=== PATIENT | female | born 1990 | race Caucasian/White ===

== ENCOUNTER 2019-07-05 16:43 | Inpatient (IN) | payer OTHER ==
[~2019-07-05] VITALS: Ht 165.1 cm; Wt 107.0 kg
--- OUTSIDE RECORDS SUMMARY | ~2019-07-05 | XMS | Clinical Summary ---
Demographics + + + | Address | [address] | | | [place] [address] | + + + | Home Phone | | + + + | Preferred Language | Unknown | + + + | Marital Status | Single | + + + | Cheondoism Affiliation | Unknown | + + + | Race | Unknown | + + + | Ethnic Group | Unknown | + + + Author + + + | Author | [facility] (Historical as of | | | 03-05-19) | + + + | Organization | [facility] (Historical as of | | | 03-05-19) | + + + | Address | Unknown | + + + | Phone | Unavailable | + + + Support + + +---------+ + | Name | Relationship | Address | Phone | + + +---------+ + | Anita Chaudhry | ECON | Unknown | | + + +---------+ + | Lluvia Chaudhry | ECON | Unknown | | + + +---------+ + | Edwina,Megha | ECON | Unknown | | + + +---------+ + Care Team Providers + +------+ + | Care Casing Builder Name | Role | Phone | + +------+ + | Perry Ramirez MD | PP | | + +------+ + Allergies + + + + + + | Active Allergy | Reactions | Severity | Noted | Comments | | | | | Date | | + + + + + + | Meperidine | Hallucinations | Medium | 02/08/20 | | | | | | 15 | | + + + + + + | Hydromorphone | Hallucinations | Medium | 02/08/20 | | | | | | 15 | | + + + + + + | Sulfamethoxazole-Tri | Hallucinations | Medium | 02/08/20 | | | methoprim | | | 15 | | + + + + + + Current Medications + + +-------+---------+------+------+-------+ | Prescription | Sig. | Disp. | Refills | Star | End | Statu | | | | | | t | Date | s | | | | | | Date | | | + + +-------+---------+------+------+-------+ | | Take 1 tablet by | | | | | Activ | | desogestrel-ethinyl | mouth daily. | | | | | e | | estradiol (APRI) | | | | | | | | 0.15-30 MG-MCG per | | | | | | | | tablet | | | | | | | + + +-------+---------+------+------+-------+ | naproxen sodium | Take 220 mg by mouth | | | | | Activ | | (ANAPROX) 220 MG | 2 (two) times daily | | | | | e | | tablet | with meals. | | | | | | + + +-------+---------+------+------+-------+ | Multiple | Take by mouth. | | | | | Activ | | Vitamins-Minerals | | | | | | e | | (MULTIVITAMIN | | | | | | | | GUMMIES ADULT PO) | | | | | | | + + +-------+---------+------+------+-------+ Active Problems + + + | Problem | Noted Date | + + + | Atypical chest pain | 06/02/2016 | + + + | Diarrhea | 06/02/2016 | + + + | Blood in stool | 12/03/2015 | + + + | Change in bowel habits | 12/03/2015 | + + + Family History + + +------+ + | Medical History | Relation | Name | Comments | + + +------+ + | Hypertension | Father | | | + + +------+ + | Hypotension | Mother | | | + + +------+ + + +------+ + + | Relation | Name | Status | Comments | + +------+ + + | Father | | Alive | | + +------+ + + | Maternal Grandfather | | | | + +------+ + + | Maternal Grandmother | | Alive | | + +------+ + + | Mother | | Alive | | + +------+ + + | Paternal Grandfather | | Alive | | + +------+ + + | Paternal Grandmother | | Alive | | + +------+ + + Social History + +-------+ +--------+------+ | Tobacco Use | Types | Packs/Day | Years | Date | | | | | Used | | + +-------+ +--------+------+ | Never Smoker | | | | | + +-------+ +--------+------+ + +---+---+---+ | Smokeless Tobacco: | | | | | Never Used | | | | + +---+---+---+ + + +---------+ + | Alcohol Use | Drinks/We | oz/Week | Comments | | | ek | | | + + +---------+ + | No | | | | + + +---------+ + + + + | Sex Assigned at | Date Recorded | | | | + + + | Not on file | | + + + Last Filed Vital Signs + + + + | Vital Sign | Reading | Time Taken | + + + + | Blood Pressure | 113/66 | 06/02/2016 10:22 AM PST | + + + + | Pulse | 79 | 06/02/2016 10:22 AM PST | + + + + | Temperature | 36.7 C (98.1 F) | 06/02/2016 10:22 AM PST | + + + + | Respiratory Rate | 16 | 06/02/2016 10:22 AM PST | + + + + | Oxygen Saturation | 99% | 06/02/2016 10:22 AM PST | + + + + | Inhaled Oxygen | - | - | | Concentration | | | + + + + | Weight | 79 kg (174 lb 2.6 | 06/02/2016 9:51 AM PST | | | oz) | | + + + + | Height | 165.1 cm (5' 5") | 06/02/2016 9:51 AM PST | + + + + | Body Mass Index | 28.98 | 06/02/2016 9:51 AM PST | + + + + Plan of Treatment + + + + + | Health Maintenance | Due Date | Last Done | Comments | + + + + + | Vaccine: HPV (1 - | | | | | Female 3-dose | 8 | | | | series) | | | | + + + + + | Cervical Cancer | | | | | Screening (Pap) | 4 | | | + + + + + | Vaccine: Influenza | | | | | (#1) | 9 | | | + + + + + | Vaccine: | | 09/24/2012 | | | Dtap/Tdap/Td (2 - | 3 | | | | Td) | | | | + + + + + Results Not on filefrom Last 3 Months Insurance + +--------+ +------+-------+ + | Payer | Benefi | Subscriber | Type | Phone | Address | | | t Plan | ID | | | | | | / | | | | | | | Group | | | | | + +--------+ +------+-------+ + | [employer] | ODS | [id number] | | | | | | HEALTH | | | | | | | PLAN | | | | | + +--------+ +------+-------+ + | MEDICAID | [place] | [id number] | | | [address] | | | N | | | | [place] | | | [place] | | | | [phone] | | | CAPACITY MANAGER | | | | | + +--------+ +------+-------+ + + +--------+ +--------+ + + | Guarantor Name | Accoun | Relation to | Date | Phone | Billing Address | | | t Type | Patient | of | | | | | | | | | | + +--------+ +--------+ + + | CHRISSY GERARDO | Person | Self [birth year] Home: | [address] | | | [place] | | 1990 | [phone] | [place] | | | [place] | | [phone] | + +--------+ +--------+ + +
--- OUTSIDE RECORDS SUMMARY | ~2019-07-05 | XMS | Encounter Summary ---
Demographics + + + | Address | [address] | | | [place] [address] | + + + | Home Phone | | + + + | Preferred Language | Unknown | + + + | Marital Status | Single | + + + | Anabaptist Affiliation | NON | + + + | Race | White | + + + | Ethnic Group | Not or | + + + Author + + + | Author | [facility] | + + + | Organization | [facility] | + + + | Address | Unknown | + + + | Phone | Unavailable | + + + Support + + + + + | Name | Relationship | Address | Phone | + + + + + | Anita Gerardo | ECON | [address] | | | | | [place] | | | | | [address] | | + + + + + | Anita Paredes | ECON | [address] | | | | | [place] | | | | | [address] | | + + + + + Care Team Providers + +------+ + | Care Assistant Child Care Teacher Name | Role | Phone | + +------+ + | Perry Ramirez MD | PCP | | + +------+ + Encounter Details +--------+ + + + + | Date | Type | Department | Care Team | Description | +--------+ + + + + | 07/01/ | Telephone | Pediatric | Humberto Hannah MD | | | 2006 | | Gastroenterology at | | | | | | [place] | | | | | | [facility] | | | | | | [address] [facility] | | | | | | Mailcode: CDRCP | | | | | | [place] | | | | | | [place], [place] | | | | | | [address] | | | | | | [phone] | | | +--------+ + + + [...]
--- OUTSIDE RECORDS SUMMARY | ~2019-07-05 | XMS | Encounter Summary ---
Demographics + + + | Address | [address] | | | [place] [address] | + + + | Home Phone | | + + + | Preferred Language | Unknown | + + + | Marital Status | Single | + + + | Temple Affiliation | NON | + + + | Race | White | + + + | Ethnic Group | Not or | + + + Author + + + | Author | [facility] | + + + | Organization | [facility] | + + + | Address | Unknown | + + + | Phone | Unavailable | + + + Support + + + + + | Name | Relationship | Address | Phone | + + + + + | Anita Gerardo | ECON | [address] | | | | | [place] | | | | | [address] | | + + + + + | Anita Paredes | ECON | [address] | | | | | [place] | | | | | [address] | | + + + + + Care Team Providers + +------+ + | Care Head Esthetician Name | Role | Phone | + +------+ + | Perry Ramirez MD | PCP | | + +------+ + Encounter Details +--------+ + + + + | Date | Type | Department | Care Team | Description | +--------+ + + + + | 07/23/ | Telephone | Pediatric | Humberto Hannah MD | | | 2007 | | Gastroenterology at | | | | | | [facility] | | | | | | [facility] | | | | | | [address] [facility] | | | | | | Mailcode: CDR | | | | | | [place] | | | | | | [place], [place] | | | | | | [address] | | | | | | [phone] | | | +--------+ + + + [...]
--- OUTSIDE RECORDS SUMMARY | ~2019-07-05 | XMS | Clinical Summary ---
Demographics + + + | Address | [address] | | | [place] [address] | + + + | Home Phone | | + + + | Preferred Language | Unknown | + + + | Marital Status | Single | + + + | Yazdanism Affiliation | NON | + + + | Race | White | + + + | Ethnic Group | Not or | + + + Author + + + | Author | [facility] | + + + | Organization | [facility] | + + + | Address | Unknown | + + + | Phone | Unavailable | + + + Support + + + + + | Name | Relationship | Address | Phone | + + + + + | Anita Gerardo | ECON | [address] | | | | | [place], [place] | | | | | [address] | | + + + + + | Anita Paredes | ECON | [address] | | | | | [place], [place] | | | | | [address] | | + + + + + Care Team Providers + +------+ + | Care Electrician Master Name | Role | Phone | + +------+ + PCP | Unavailable | + +------+ + Source Comments JOHN is fully live on both [facility] and [facility] In[facility] Allergies No Known Allergies Medications + + + +---------+------+------+-------+ | Medication | Sig | Dispensed | Refills | Star | End | Statu | | | | | | t | Date | s | | | | | | Date | | | + + + +---------+------+------+-------+ | DAILY VITAMIN ORAL | take one tablet once | | 0 | | | Activ | | | daily | | | | | e | + + + +---------+------+------+-------+ Active Problems + + + | Problem | Noted Date | + + + | Abdominal pain, generalized | 07/06/2007 | + + + Social History + +-------+ [...] recent travel history available. | + + Last Filed Vital Signs + [...] | | + + + + + Plan of Treatment + + + + + | Health Maintenance | Due Date | Last Done | Comments | + + + + + | Influenza (Flu) | | | | | vaccination (#1) | 9 | | | + + + + + | Pneumococcal | Aged Out | | No longer eligible | | vaccination | | | based on patient's | | | | | age to complete this | | | | | topic | + + + + + Results Not on filefrom Last 3 Months Insurance + +--------+ +--------+-------+---------+------+ | Payer | Benefi | Subscriber | Effect | Phone | Address | Type | | | t Plan | ID | vannessa | | | | | | / | | Dates | | | | | | Group | | | | | | + +--------+ +--------+-------+---------+------+ | COVENTRY FIRST | COVENT | [phone] | Effect | | | HMO | | HEALTH | RY | | vannessa | | | | | | FIRST | | for | | | | | | HEALTH | | all | | | | | | | | dates | | | | + +--------+ +--------+-------+---------+------+ + +--------+ +-------+ + + | Guarantor Name | Accoun | Relation to | Date | Phone | Billing Address | | | t Type | Patient | of | | | | | | | | | | + +--------+ +-------+ + + | PHILOMENA ACEVEDO | Person | Parent | | | [address] | | | al/Fam | | | [phone] | [place] | | | [place] | | | [address] (Home) | [phone] | + +--------+ +-------+ + +
--- OUTSIDE RECORDS SUMMARY | ~2019-07-05 | XMS | Encounter Summary ---
Demographics + + + | Address | [address] | | | [place] [address] | + + + | Home Phone | | + + + | Preferred Language | Unknown | + + + | Marital Status | Single | + + + | Catholic Affiliation | NON | + + + | Race | White | + + + | Ethnic Group | Not or | + + + Author + + + | Author | [facility] | + + + | Organization | [facility] | + + + | Address | Unknown | + + + | Phone | Unavailable | + + + Support + + + + + | Name | Relationship | Address | Phone | + + + + + | Anita Gerardo | ECON | [address] | | | | | [place] | | | | | [address] | | + + + + + | Anita Paredes | ECON | [address] | | | | | [place] | | | | | [address] | | + + + + + Care Team Providers + +------+ + | Care Hand Expansion Envelope Maker Name | Role | Phone | + [...] Dx); [facility] | | | | [facility] | | | | | | [address] | | | | | | Mailcode: CDRCP | | | | | | [place] | | | | | | [place], [place] | | | | | | [address] | | | | | | [phone] | | | +--------+---------+ + + + [...] HIDA scan. She is then referred to [facility] GI office for further evaluation. No past [...]
--- OUTSIDE RECORDS SUMMARY | ~2019-07-05 | XMS | Encounter Summary ---
Demographics + + + | Address | [address] | | | [place] [address] | + + + | Home Phone | | + + + | Preferred Language | Unknown | + + + | Marital Status | Single | + + + | Sabianist Affiliation | NON | + + + [...] + | Anita Gerardo | ECON | [address] | | | | | [place] | | | | | [address] | | + + + + + | Anita Paredes | ECON | [address] | | | | | [place] | | | | | [address] | | + + + + + Care Team Providers + +------+ + | Care Cold Header Operator Name | Role | Phone | + +------+ + | Opal Ramirez MD | PCP | | + +------+ + Encounter Details +--------+ + + + + | Date | Type | Department | Care Team | Description | +--------+ + + + + | 07/16/ | Procedure - | [facility] Division of | Endoscopy, Gi | EGD | | 2006 | | Gastroenterology/Hep | | (esophagogastroduode | | | Transcribed | atology [address] | | noscopy) | | | | [address] | | | | | | Mailcode: PV310 | | | | | | [facility] | | | | | | [address] | | | | | | [place], [place] | | | | | | [address] | | | | | | [phone] | | | +--------+ + + + [...] | + +--------+ + + + | EGD | | 07/16/2007 | | Results for this | | | | 12:00 AM | | procedure are in the | | | | PST | | results section. | + +--------+ + + + documented in this encounter Results EGD (07/16/2007 12:00 AM PST) + + | Procedure Note | + + | 07/16/2007 12:00 AM PST | | PROCEDURES:PANENDOSCOPY (EGD) CPT: 20276. | | WITH BIOPSY(S)/BRUSHING(S). CPT: 01218. | | PERSONNEL:THE ATTENDING PHYSICIAN WAS PRESENT DURING THE ENTIRE PROCEDURE. | | ENDOSCOPIST: ASSISTANT SUZY GRANT. | | REFERRED BY:OPAL RAMIREZ M.D. | | EVALUATION PERSONNELPRE-OPERATIVE PHYSICAL BY AURY MACHUCA, CODE OFFICIAL | | PROFESSOR ON JUL 16, 2007 | | EXAM LOCATION:EXAM PERFORMED IN ENDOSCOPY SUITE. OUTPATIENT | | PATIENT CONSENT:PROCEDURE, ALTERNATIVES, RISKS AND BENEFITS DISCUSSED, | | CONSENT OBTAINED, FROM PATIENT. CONSENT WAS OBTAINED BY THE PHYSICIAN. | | CONSENT TO BE CONTACTED WAS NOT REQUESTED. | | SYMPTOMS:ABDOMINAL PAIN, | | CURRENT MEDICATIONS:PATIENT IS NOT CURRENTLY TAKING COUMADIN. | | MEDICAL/SURGICAL HISTORY:THIS PATIENT HAS NO CO-MORBIDITIES. | | ALLERGIES:NO KNOWN ALLERGIES. | | PATIENT HABITSPATIENT DOES NOT SMOKE. | | PRE-EXAM PHYSICAL:PERFORMED JUL 16, 2007 CARDIO-PULMONARY EXAM, HEENT | | EXAM, ABDOMINAL EXAM, EXTREMITY EXAM, NEUROLOGICAL EXAM, MENTAL STATUS | | EXAM WNL. | | EXAM INFO:MAXIMUM DEPTH OF INSERTION DUODENUM, INTENDED DUODENUM. PATIENT | | POSITION: ON LEFT SIDE. VOCAL CORDS VISUALIZED. GASTRIC RETROFLEXION | | PERFORMED. IMAGES TAKEN. ASA CLASSIFICATION: I. TOLERANCE: EXCELLENT. | | SEDATION MEDS:PATIENT ASSESSED AND FOUND TO BE APPROPRIATE FOR GENERAL | | ANESTHESIA. SEDATION WAS MANAGED BY THE ANESTHESIOLOGIST. | | MONITORING:BP AND PULSE MONITORING DONE. OXIMETRY USED. | | INSTRUMENT(S):OLYMPUS GIF-160. | | - NORMAL: PROXIMAL ESOPHAGUS TO DISTAL ESOPHAGUS. NOT SEEN: ESOPHAGEAL | | INFLAMMATION. BIOPSY/NORMAL TAKEN. | | - NORMAL: CARDIA TO ANTRUM. NOT SEEN: ULCER. MUCOSAL ABNORMALITY. | | BIOPSY/NORMAL TAKEN. | | - NORMAL: DUODENAL BULB TO JEJUNUM. NOT SEEN: ULCER. MUCOSAL ABNORMALITY. | | BIOPSY/NORMAL TAKEN. | | COMMENTS:GROSSLY NORMAL STUDY | | UNPLANNED INTERVENTION:NO UNPLANNED INTERVENTIONS WERE REQUIRED. | | UNPLANNED EVENTS:THERE WERE NO COMPLICATIONS. | | INSTRUCTIONS:POST SEDATION INSTRUCTIONS GIVEN. | | MEDICATION(S):AWAIT PATHOLOGY. | | DISPOSITION:AFTER PROCEDURE PATIENT SENT TO SHORT STAY UNIT. AFTER | | RECOVERY PATIENT SENT HOME. | | SCHEDULING:AWAIT PATHOLOGY TO SCHEDULE PATIENT. CALL OFFICE FOR | | APPOINTMENT, TO ASSISTANT SUZY GRANT, | | CALL OFFICE FOR BIOPSY RESULTS, TO ASSISTANT SUZY GRANT, | | PATHOLOGY:BIOPSY/NORMAL: DISTAL ESOPHAGUS. | | BIOPSY/NORMAL: ANTRUM. | | BIOPSY/NORMAL: JEJUNUM. | | REPORT ENTERED BY: | | | + + documented in this encounter Visit Diagnoses Not on filedocumented in this encounter"
--- OUTSIDE RECORDS SUMMARY | ~2019-07-05 | XMS | Encounter Summary ---
Demographics + + + | Address | [address] | | | [place] [address] | + + + | Home Phone | | + + + | Preferred Language | Unknown | + + + | Marital Status | Single | + + + | Roman Catholic Affiliation | NON | + + + | Race | White | + + + | Ethnic Group | Not or | + + + Author + + + | Author | [facility] | + + + | Organization | [facility] | + + + | Address | Unknown | + + + | Phone | Unavailable | + + + Support + + + + + | Name | Relationship | Address | Phone | + + + + + | Anita Gerardo | ECON | [address] | | | | | [place] | | | | | [address] | | + + + + + | Anita Paredes | ECON | [address] | | | | | [place] | | | | | [address] | | + + + + + Care Team Providers + +------+ + | Care Edge Drummer Name | Role | Phone | + [...] [id number] | | | | | | [place], [place] | | | | | | [address] | | | | | | [phone] | | | +--------+ + + + [...] | + + + + + | [facility] | [address] | [place] [address] | | | PATHOLOGY | UR DIAZ | | | + + + + + | [facility] | [address] [facility] | [place] [address] | | | PATHOLOGY | RU DIAZ | | | + + + + + documented in this encounter Visit Diagnoses Not on filedocumented in this encounter"
--- OUTSIDE RECORDS SUMMARY | ~2019-07-05 | XMS | Encounter Summary ---
Demographics + + + | Address | [address] | | | [place] [address] | + + + | Home Phone | | + + + | Preferred Language | Unknown | + + + | Marital Status | Single | + + + | Restoration Affiliation | NON | + + + | Race | White | + + + | Ethnic Group | Not or | + + + Author + + + | Author | [facility] | + + + | Organization | [facility] | + + + | Address | Unknown | + + + | Phone | Unavailable | + + + Support + + + + + | Name | Relationship | Address | Phone | + + + + + | Anita Gerardo | ECON | [address] | | | | | [place] | | | | | [address] | | + + + + + | Anita Paredes | ECON | [address] | | | | | [place] | | | | | [address] | | + + + + + Care Team Providers + +------+ + | Care Surgical Scrub Tech Name | Role | Phone | + [...] [id number] | | | | | | [place], [place] | | | | | | [address] | | | | | | [phone] | | | +--------+ + + + [...]
--- OUTSIDE RECORDS SUMMARY | ~2019-07-05 | XMS | Encounter Summary ---
Demographics + + + | Address | [address] | | | [place] [address] | + + + | Home Phone | | + + + | Preferred Language | Unknown | + + + | Marital Status | Single | + + + | Buddhism Affiliation | NON | + + + | Race | White | + + + | Ethnic Group | Not or | + + + Author + + + | Author | [facility] | + + + | Organization | [facility] | + + + | Address | Unknown | + + + | Phone | Unavailable | + + + Support + + + + + | Name | Relationship | Address | Phone | + + + + + | Anita Gerardo | ECON | [address] | | | | | [place] | | | | | [address] | | + + + + + | Anita Paredes | ECON | [address] | | | | | [place] | | | | | [address] | | + + + + + Care Team Providers + +------+ + | Care Pump Tender Name | Role | Phone | + [...] | | | generalized | [place] | [place], | | | | | Procedures | [facility] [place] | [place] [address] | | | | | CONSULT TO | [place], [place] | | | | | | [place] | [address] | | | | | | GI | | | | | | | ENDOSCOPY,BI | | | | | | | OPSY | | | +--------+--------+ + + + + Encounter Details +--------+ + + + + | Date | Type | Department | Care Team | Description | +--------+ + + + + | 07/06/ | Lpn Care Manager | Pediatric | Irma Mejia, | Abdominal Pain, | | 2006 | | Gastroenterology at | RN [address] | Generalized (Primary | | | | [facility] | [address] | Dx) | | | [facility] | [place] [address] | | | | | [address] | | | | | | Mailcode: CDRCP | | | | | | [place] | | | | | | [place], [place] | | | | | | [address] | | | | | | [phone] | | | +--------+ + + + [...]
[~2019-07-05 16:43] MED LIST: EMOQUETTE1 EACH PO; FLAGYL500 MG PO; PERCOCET 5-3251 EACH PO; ZOFRAN ODT8 MG PO
--- NOTE | 2019-07-06 12:22 | PR ---
[facility] [address] [facility] [place] [address] Signed Progress Notes IP Datetime Report Generated by CPN: 07/06/2019 12:22 PROGRESS NOTES: [id number] Impression: Slow Progression of Labor Plan: Continue present management Other Plans: Continue Cytotec VITAL SIGNS: [id number] Vital Signs: Reviewed; Within Normal Limits EXAM: [id number] Dilatation: closed Effacement: thick Station: -3 Uterine Contractions: every 2-3 minutes MEMBRANES: [id number] Membrane Status: Intact Comments: Contracitons still mild, but more frequent; continue with Cytotec Induction Fetus A: [id number] FHR Baseline: 145 Variability: Moderate 6-25bpm Accelerations: 15X15 Decelerations: Late; Variable Fetus B: [id number] Signing Physician: Brian Mehta MD Copies: ~ *Electronically Signed* 07/06/19 1222 BRIAN MEHTA MD PATIENT NAME: QUETA VELAZQUEZ PROGRESS NOTE DATE OF : 89 PHYSICIAN: BRIAN MEHTA MD RPT #: [id number] REPORT IS CONFIDENTIAL AND NOT TO BE RELEASED WITHOUT AUTHORIZATION
--- NOTE | 2019-07-06 13:40 | NUR ---
CONNECTED WITH PTS' MOTHER-SHE IS VERY EXCITED ABOUT BEING A G.MOTHER! GAVE ENCOURAGEMENT, HAD PRAYER WTIH G.MOTHER. WILL FOLLOW NEEDED
--- NOTE | 2019-07-06 18:15 | PR ---
[facility] [address] [place], [place] [address] Signed Progress Notes IP Datetime Report Generated by CPN: 07/06/2019 18:15 PROGRESS NOTES: [id number] Impression: Slow Progression of Labor Plan: Deliver- Section Other Plans: Continue Cytotec Informed Consent Obtain: Section Delivery; Risks, Benefits and Alternatives Discussed VITAL SIGNS: [id number] Vital Signs: Reviewed; Within Normal Limits EXAM: [id number] Dilatation: 0.0 Effacement: 0 Station: -3 Uterine Contractions: every 2-3 minutes MEMBRANES: [id number] Membrane Status: Intact Comments: Still difficult vaginal exam and LGA fetus, with no progress after Cytotec x4 and having contractions. Discussed increased risks of prolonged labor, difficult delivery. Recommend C/S for Failed Induction. Discussed risks/benefits, timing, optionof continuing with Cytotec and/or Pitocin. Patient agrees to C/S. Consent signed. OR and ANesthesia called. Fetus A: [id number] FHR Baseline: 140 Variability: Moderate 6-25bpm Accelerations: 15X15 Decelerations: Late; Variable Presentation: Vertex Fetus B: [id number] Signing Physician: Brian Mehta MD Copies: ~ *Electronically Signed* 07/06/19 8052 BRIAN MEHTA MD PATIENT NAME: QUETA VELAZQUEZ PROGRESS NOTE DATE OF : 92 PHYSICIAN: BRIAN MEHTA MD RPT #: [id number] REPORT IS CONFIDENTIAL AND NOT TO BE RELEASED WITHOUT AUTHORIZATION
--- NOTE | 2019-07-07 11:42 | PR ---
[facility] [address] [facility] [place] [address] Signed PP Progress Notes Datetime Report Generated by CPN: 07/07/2019 11:42 SUBJECTIVE: [id number] Pain: Within normal limits Nausea/Vomiting: Denies Vital Signs: [id number] Vital Signs: Reviewed; Within Normal Limits Notable Details: PP Hgb/Hct = 9.3/28.5 EXAM: [id number] Abdomen/Uterus: Normal Lochia: Normal Extremities: Normal Incision: Normal IMPRESSION/PLAN/PROCEDURES: [id number] Impression: Normal progression Plan: Continue present management Procedures: None Progress Notes: Doing well, eating well, plan removing Andrea and increasing activity later today Signing Physician: Brian Mehta MD Copies: ~ *Electronically Signed* 07/07/19 1142 BRIAN MEHTA MD PATIENT NAME: QUETA VELAZQUEZ PROGRESS NOTE DATE OF : 92 PHYSICIAN: BRIAN MEHTA MD RPT #: [id number] REPORT IS CONFIDENTIAL AND NOT TO BE RELEASED WITHOUT AUTHORIZATION
--- NOTE | 2019-07-08 11:33 | OR ---
[facility] [address] [place], [place] [address] Signed DATE OF OPERATION: 07/06/2019 SURGEON: Francisco Franks MD Patient of Dr. Franks. PREOPERATIVE DIAGNOSES: Failure to progress, cephalopelvic disproportion. POSTOPERATIVE DIAGNOSES: Failure to progress, cephalopelvic disproportion. PROCEDURE PERFORMED: Primary low transverse segment section, delivery of live male . HOUSEKEEPING DIRECTOR: Lewis Tripp DO ANESTHESIA: Spinal. ESTIMATED BLOOD LOSS: 700 mL. COMPLICATIONS: Terminal bradycardia. DRAINS: Andrea to bladder. FINDINGS: Live male infant, Apgars 8 and 9. Weight 9 pounds 9 ounces. Normal uterus. Normal tubes and ovaries bilateral. DESCRIPTION OF PROCEDURE: The patient was brought to the operating room, placed in supine position. After adequate spinal anesthesia was obtained, she was prepped and draped in usual sterile fashion. Andrea catheter was placed in the bladder. After the spinal heart rate was noted to drop into the 70s, so the prep was expeditiously done and the patient rapidly prepped and draped. A Pfannenstiel skin incision was made with a scalpel. The Electronically Signed By: FRANCISCO FRANKS MD 07/08/19 1133 PATIENT NAME: QUETA VELAZQUEZ OPERATIVE REPORT DATE OF : 89 REPORT #: [id number] PHYSICIAN: FRANCISCO FRANKS MD PCP: OPAL MURDOCK MD REPORT IS CONFIDENTIAL AND NOT TO BE RELEASED WITHOUT AUTHORIZATION [facility] [address] [place], [place] [address] Signed subcutaneous tissue dissected with the scalpel and the fascia then nicked with the scalpel. The fascia was then opened in transverse fashion using curved scissors and the underlying abdominal musculature bluntly and sharply from the fascia above and below the incision. The abdominal musculature was bluntly along the midline. The peritoneum opened with finger dissection and David self-retaining retractor inserted into the incision. The lower uterine segment was then carefully nicked with scalpel and extended in transverse fashion using finger dissection. The infant was noted to be in vertex ROT presentation. The infant head was high in the pelvis and head delivered through the incision. The rest of the infant was then easily delivered through the incision. The cord was doubly clamped and cut. The infant was passed off table in good condition to awaiting nurse. Cord gases were obtained because of the low heartbeat, although baby recuperated quickly. The placenta was manually removed and uterine cavity explored with lap pad to remove any retained membranes. An angle stitch of 0 Monocryl was placed at one end of the incision and a 2nd running locking stitch of 0 Monocryl used to close the incision. A 2nd running stitch of 0 Monocryl was used to imbricate the 1st layer. Good hemostasis was noted. The entire pelvis was irrigated, suctioned examined. Any superficial bleeding spots cauterized with Bovie. When good hemostasis was obtained, the David retractor was removed. Sheet of ACell placed over the lower uterine segment to help with healing and the anterior peritoneum closed using a running stitch of 2-0 Vicryl suture. The abdominal musculature was reapproximated using interrupted stitch of 0 Vicryl suture. The abdominal wall incision was irrigated, suctioned, examined, any bleeding spots cauterized with the Bovie. When good hemostasis was obtained, powdered ACell was sprinkled on the abdominal musculature again to help with healing and the fascia closed using two running stitches of 0 Vicryl suture meeting in the midline. Subcutaneous tissue was irrigated, suctioned, examined. Any bleeding spots cauterized with the Bovie. Subcutaneous tissue was closed using interrupted stitches of 3-0 Vicryl suture and the skin reapproximated using skin clips. The patient tolerated the procedure well, went to recovery room in good condition. The sponge, needle, and instrument count correct at the end of the procedure. Francisco Franks MD MJB/MODL /[id number] Electronically Signed By: FRANCISCO FRANKS MD 07/08/19 1133 PATIENT NAME: QUETA VELAZQUEZ OPERATIVE REPORT DATE OF : 89 REPORT #: [id number] PHYSICIAN: FRANCISCO FRANKS MD PCP: OPAL MURDOCK MD REPORT IS CONFIDENTIAL AND NOT TO BE RELEASED WITHOUT AUTHORIZATION [facility] [address] [place] [address] [address] Velásquez [place] [address] Signed Copies: ~ Electronically Signed By: FRANCISCO FRANKS MD 07/08/19 1133 PATIENT NAME: QUETA VELAZQUEZ OPERATIVE REPORT DATE OF : 89 REPORT #: [id number] PHYSICIAN: FRANCISCO FRANKS MD PCP: OPAL MURDOCK MD REPORT IS CONFIDENTIAL AND NOT TO BE RELEASED WITHOUT AUTHORIZATION
--- NOTE | 2019-07-08 11:37 | PR ---
[facility] [address] Velás[place] [address] Signed PP Progress Notes Datetime Report Generated by CPN: 07/08/2019 11:37 SUBJECTIVE: [id number] Pain: Within normal limits Nausea/Vomiting: Denies Vital Signs: [id number] Vital Signs: Reviewed; Within Normal Limits Notable Details: PP Hgb/Hct = 9.3/28.5 EXAM: [id number] Abdomen/Uterus: Normal Lochia: Normal Extremities: Normal Incision: Normal IMPRESSION/PLAN/PROCEDURES: [id number] Impression: Normal progression Plan: Continue present management Procedures: None Progress Notes: Doing well, without complalitn. Will get up to shower today. Signing Physician: Brian Mehta MD Copies: ~ *Electronically Signed* 07/08/19 1137 BRIAN MEHTA MD PATIENT NAME: QUETA VELAZQUEZ PROGRESS NOTE DATE OF : 89 PHYSICIAN: BRIAN MEHTA MD RPT #: [id number] REPORT IS CONFIDENTIAL AND NOT TO BE RELEASED WITHOUT AUTHORIZATION
--- NOTE | 2019-07-09 11:12 | PR ---
[facility] [address] Vel[address]quez [place] [address] Signed PP Progress Notes Datetime Report Generated by CPN: 07/09/2019 11:12 SUBJECTIVE: [id number] Pain: Within normal limits Nausea/Vomiting: Denies Vital Signs: [id number] Vital Signs: Reviewed; Within Normal Limits Notable Details: PP Hgb/Hct = 9.3/28.5 EXAM: [id number] Abdomen/Uterus: Normal Lochia: Normal Extremities: Normal Incision: Normal IMPRESSION/PLAN/PROCEDURES: [id number] Impression: Normal progression Plan: Discharge Procedures: None Progress Notes: Doing well, without complaint, ready to go home. Signing Physician: Brian Mehta MD Copies: ~ *Electronically Signed* 07/09/19 1112 BRIAN MEHTA MD PATIENT NAME: QUETA VELAZQUEZ PROGRESS NOTE DATE OF : 89 PHYSICIAN: BRIAN MEHTA MD RPT #: [id number] REPORT IS CONFIDENTIAL AND NOT TO BE RELEASED WITHOUT AUTHORIZATION
== END 2019-07-09 14:00 | disposition home or self-care (01) | DRG 788 ==
LOC: FBC 07-06 00:26
PROVIDERS: ADMIT General Practice
PROC: 3E0P7VZ Introduction of Hormone into Female Reproductive, Via Natural or Artificial Opening (ICD-10-PCS; 2019-07-06)
PROC: 10D00Z1 Extraction of Products of Conception, Low, Open Approach (ICD-10-PCS; principal; 2019-07-06 18:26)
PROC: 3E0234Z Introduction of Serum, Toxoid and Vaccine into Muscle, Percutaneous Approach (ICD-10-PCS; 2019-07-08)
DX: O48.0 Post-term pregnancy (principal); Z3A.40 40 weeks gestation of pregnancy; Z37.0 Single live birth; O33.5XX0 Maternal care for disproportion due to unusually large fetus, not applicable or unspecified; O36.63X0 Maternal care for excessive fetal growth, third trimester, not applicable or unspecified; O69.81X0 Labor and delivery complicated by cord around neck, without compression, not applicable or unspecified; O90.81 Anemia of the puerperium; D64.9 Anemia, unspecified; Z23 Encounter for immunization; O63.0 Prolonged first stage (of labor); O32.2XX0 Maternal care for transverse and oblique lie, not applicable or unspecified; O26.893 Other specified pregnancy related conditions, third trimester; O74.2 Cardiac complications of anesthesia during labor and delivery; R00.1 Bradycardia, unspecified; Z67.41 Type O blood, Rh negative; Z88.5 Allergy status to narcotic agent; Z88.2 Allergy status to sulfonamides
CPT/HCPCS: 01961; 36415; 83030; 85027; 86850; 86900; 86901; 90707; A9270; J0131; J0690; J1885; J2210; J2274; J2405; J2590; J2790; J7121

== ENCOUNTER 2019-07-14 18:37 | Emergency (ER) | payer OTHER ==
[~2019-07-14] VITALS: Ht 165.1 cm; Wt 107.0 kg
--- OUTSIDE RECORDS SUMMARY | ~2019-07-14 | XMS | Encounter Summary ---
Demographics + + + | Address | [address] | | | [place] [address] | + + + | Home Phone | | + + + | Preferred Language | Unknown | + + + | Marital Status | Single | + + + | Confucianism Affiliation | Unknown | + + + | Race | Unknown | + + + | Ethnic Group | Unknown | + + + Author + + + | Author | [facility] | | | and [place] | + + + | Organization | [facility] | | | and [place] | + + + | Address | Unknown | + + + | Phone | Unavailable | + + + Support + + +---------+ + | Name | Relationship | Address | Phone | + + +---------+ + | Anita Chaudhry | ECON | Unknown | | + + +---------+ + Care Team Providers + +------+ + | Care Program Coordinator Executive Education Name | Role | Phone | + +------+ + PCP | Unavailable | + +------+ + Encounter Details +--------+ + + + + | Date | Type | Department | Care Team | Description | +--------+ + + + + | 10/16/ | Hospital | [facility] | | | | 1998 | Encounter | MED CTR XRAY [address] | | | | | | [address] | | | | | | [place] [address] | | | | | | [phone] | | | +--------+ + + + + Social History + +-------+ +--------+------+ | Tobacco Use | Types | Packs/Day | Years | Date | | | | | Used | | + +-------+ +--------+------+ | Never Assessed | | | | | + +-------+ +--------+------+ + + + | Sex Assigned at | Date Recorded | | | | + + + | Not on file | | + + + + + + + | Job Start Date | Occupation | Industry | + + + + | Not on file | Not on file | Not on file | + + + + + + + + | Travel History | Travel Start | Travel End | + + + + + + | No recent travel history available. | + + documented as of this encounter Plan of Treatment Not on filedocumented as of this encounter Visit Diagnoses Not on filedocumented in this encounter"
--- OUTSIDE RECORDS SUMMARY | ~2019-07-14 | XMS | Encounter Summary ---
Demographics + + + | Address | [address] | | | [place] [address] | + + + | Home Phone | | + + + | Preferred Language | Unknown | + + + | Marital Status | Single | + + + | Yazidi Affiliation | Unknown | + + + | Race | Unknown | + + + | Ethnic Group | Unknown | + + + Author + + + | Author | [facility] | | | and [place] | + + + | Organization | [facility] | | | and [place] [...] Team Providers + +------+ + | Care Nuclear Plant Construction Worker Name | Role | Phone | + +------+ + | Perry Ramirez | PCP | | | MD | | | + +------+ + Encounter Details +--------+ + + + + | Date | Type | Department | Care Team | Description | +--------+ + + + + | 06/11/ | Orders Only | [facility] | Conversion | | | 2014 | | CONVERSION DEP [address] | Transaction, | | | | | [address] | Provider Unknown | | | | | [place] | [phone] | | | | | [address] | | | | | | [phone] | | | +--------+ + + + [...]
--- OUTSIDE RECORDS SUMMARY | ~2019-07-14 | XMS | Encounter Summary ---
Demographics + + + | Address | [address] | | | [place] [address] | + + + | Home Phone | | + + + | Preferred Language | Unknown | + + + | Marital Status | Single | + + + | Orthodoxy Affiliation | Unknown | + + + | Race | Unknown | + + + | Ethnic Group | Unknown | + + + Author + + + | Author | [facility] | | | and [place] | + + + | Organization | [facility] | | | and [place] [...] Team Providers + +------+ + | Care Records Associate Name | Role | Phone | + +------+ + | Perry Ramirez | PCP | | | MD | | | + +------+ + Encounter Details +--------+ + + + + | Date | Type | Department | Care Team | Description | +--------+ + + + + | 06/18/ | Orders Only | [facility] | Suni Cline | | | 2016 | | [address] | A, MOISTURE METER READER [address] | | | | | [place] | [address] | | | | | [address] | [place] [address] | | | | | [phone] | [phone] | | | | | | | | +--------+ + + + [...] Not on filedocumented as of this encounter Procedures + +--------+ + + + | Procedure Name | Priori | Date/Time | Associated Diagnosis | Comments | | | ty | | | | + +--------+ + + + | EXTERNAL LAB: CBC | Routin | 06/18/2016 | | Results for this | | | e | 8:48 AM | | procedure are in the | | | | PST | | results section. | + +--------+ + + + documented in this encounter Results External Lab: CBC (06/18/2016 8:48 AM PST) + + + + + + | Component | Value | Ref Range | Performed | Pathologist | | | | | At | Signature | + + + + + + | WBC | 8.19 | 3.80 - 11.00 | EXTERNAL | | | | | 10*3/uL | LAB | | + + + + + + | RED CELL | 4.95 | 3.70 - 5.10 | EXTERNAL | | | COUNT | | 10*6/uL | LAB | | + + + + + + | Hgb | 13.9 | 11.3 - 15.5 | EXTERNAL | | | | | g/dL | LAB | | + + + + + + | Hematocrit, | 40.9 | 34.0 - 46.0 % | EXTERNAL | | | POC | | | LAB | | + + + + + + | MCV | 82.7 | 80.0 - 100.0 fL | EXTERNAL | | | | | | LAB | | + + + + + + | MCH | 28.1 | 27.0 - 34.0 pg | EXTERNAL | | | | | | LAB | | + + + + + + | MCHC | 34.0 | 32.0 - 35.5 | EXTERNAL | | | | | g/dL | LAB | | + + + + + + | RDW-CV | 38.5 | 37 - 53 fL | EXTERNAL | | | | | | LAB | | + + + + + + | Platelet | 229 | 150 - 400 | EXTERNAL | | | Count | | 10*3/uL | LAB | | | Plasma | | | | | + + + + + + | MPV | 10.0 | fL | EXTERNAL | | | | | | LAB | | + + + + + + | Differentia | AUTOMATED | | EXTERNAL | | | l Type | | | LAB | | + + + + + + | % Segmented | 60.97 | % | EXTERNAL | | | | | | LAB | | | Neutrophils | | | | | + + + + + + | % | 28.87 | % | EXTERNAL | | | Lymphocytes | | | LAB | | + + + + + + | % Monocytes | 7.79 | % | EXTERNAL | | | | | | LAB | | + + + + + + | % | 1.76 | % | EXTERNAL | | | Eosinophils | | | LAB | | + + + + + + | % Basophils | 0.61 | % | EXTERNAL | | | | | | LAB | | + + + + + + | Absolute | 5.00 | 1.90 - 7.40 | EXTERNAL | | | Segmented | | 10*3/uL | LAB | | | Neutrophils | | | | | + + + + + + | Absolute | 2.37 | 1.00 - 3.90 | EXTERNAL | | | Lymphocytes | | 10*3/uL | LAB | | + + + + + + | Absolute | 0.64 | 0.00 - 0.80 | EXTERNAL | | | Monocytes | | 10*3/uL | LAB | | + + + + + + | Absolute | 0.15 | 0.00 - 0.50 | EXTERNAL | | | Eosinophils | | 10*3/uL | LAB | | + + + + + + | Absolute | 0.05 | 0.00 - 0.10 | EXTERNAL | | | Basophils | | 10*3/uL | LAB | | + + + + + + + + | Specimen | + + | | + + + +---------+ + + | Performing | Address | City/State/Zipcode | Phone Number | | Organization | | | | + +---------+ + + | EXTERNAL LAB | | | | + +---------+ + + documented in this encounter Visit Diagnoses Not on filedocumented in this encounter"
--- OUTSIDE RECORDS SUMMARY | ~2019-07-14 | XMS | Encounter Summary ---
Demographics + + + | Address | [address] | | | [place] [address] | + + + | Home Phone | | + + + | Preferred Language | Unknown | + + + | Marital Status | Single | + + + | Christianity Affiliation | NON | + + + | Race | White | + + + | Ethnic Group | Not or | + + + Author + + + | Author | [facility] | + + + | Organization | [facility] | + + + | Address | Unknown | + + + | Phone | Unavailable | + + + Support + + + + + | Name | Relationship | Address | Phone | + + + + + | Anita Gerardo | ECON | [address] | | | | | [place] | | | | | [address] | | + + + + + | Anita Paredes | ECON | [address] | | | | | [place] | | | | | [address] | | + + + + + Care Team Providers + +------+ + | Care Heat Treat Worker Name | Role | Phone | + +------+ + | Perry Ramirez MD | PCP | | + +------+ + Reason for Visit + + + | Reason | Comments | + + + | New patient | Abdominal pain | | consultation | | + + + Encounter Details +--------+---------+ + + + | Date | Type | Department | Care Team | Description | +--------+---------+ + + + | 07/01/ | Office | Pediatric | Humberto Hannah MD | Abdominal Pain, | | 2006 | Visit | Gastroenterology at | | Epigastric (Primary | | | | [place] | | Dx); Early Satiety | | | | [facility] | | | | | | [address] | | | | | | Mailcode: CDRCP | | | | | | [place] | | | | | | [place], [place] | | | | | | [address] | | | | | | [phone] | | | +--------+---------+ + + + Social History + +-------+ [...] + + documented as of this encounter Last Filed Vital Signs + + + + + | Vital Sign | Reading | Time Taken | Comments | + + + + + | Blood Pressure | 98/62 | 07/01/2007 2:03 PM | | | | | PST | | + + + + + | Pulse | 79 | 07/01/2007 2:03 PM | | | | | PST | | + + + + + | Temperature | - | - | | + + + + + | Respiratory Rate | - | - | | + + + + + | Oxygen Saturation | - | - | | + + + + + | Inhaled Oxygen | - | - | | | Concentration | | | | + + + + + | Weight | 70.1 kg (154 lb 8.7 | 07/01/2007 2:03 PM | | | | oz) | PST | | + + + + + | Height | 165.3 cm (5' 5.08") | 07/01/2007 2:03 PM | | | | | PST | | + + + + + | Body Mass Index | 25.65 | 07/01/2007 2:03 PM | | | | | PST | | + + + + + documented in this encounter Patient Instructions Patient Instructions Humberto Hannah - 07/01/2007 5:06 PM PST1. Continue Nexium for now. 2. Schedule GE study and EGD. 3. Return visit in 1 month. documented in this encounter Progress Notes Humberto Hannah - 07/01/2007 5:05 PM PSTFormatting of this note might be different from the or iginal. Constantino Gerardo is a 16 y.o. female, who is referred by Dr. Perry Ramirez, for evalu ation and management of Abdominal pain. Constantino presents with epigastric pain for a month. She denies any radiation. Her pain usually occurs in the morning, and is worsened by eating especially after ingestion of solid food. In addition, Constantino complains of postprandial e crista satiety. As a result, she has to decrease her po intake. She has tried Nexium for a wee k without any noticeable improvement. Over the course, she denies fever, nausea, vomiting, c onstipation or diarrhea. The patient went to PCP's office, and had a normal workup including CBC, CRP, CMP. Amylase, lipase, abdominal US, CAT and HIDA scan. She is then referred to [facility] GI office for further evaluation. No past medical history on file. No past surgical history on file. Current outpatient prescriptions : DAILY VITAMIN ORAL, take one tablet once daily, Disp: , Rfl: No Known Allergies. Social History: History Substance Use Topics Tobacco Use: Not on file Alcohol Use: Not on file Family history: Non-contributory. Review of Systems: As described above. Otherwise, it is negative. Physical Examination: BP 98/62 | Pulse 79 | Ht 165.3 cm (5' 5") | Wt 70.100 kg (154 lbs 8.7 oz) Body mass index is 25.65 kg/(m^2). Appearance: adequately nourished, alert, active and in no apparent distress. Skin: turgor normal, capillary refill brisk, no rashes, bruises, petechiae or other lesio ns. HEENT: normocephalic, EOM manual, PERRLA ,nose without discharge, mouth without lesions, mu cous membranes moist, pharynx unremarkable Neck: supple, without thyromegaly Chest: clear to auscultation bilaterally. CV: regular sinus rhythm, normal S1 and S2, no audible murmurs. Abdomen: soft, no distention, epigastric tenderness to deep palpation, no rebound tendernes s, no guarding, no palpable masses, normal bowel sounds, no hepatosplenomegaly Back- without tenderness Musculoskeletal: grossly intact and appropriate to age Neuro: grossly intact and appropriate to age, DTRs 2+ and symmetric Nodes: no significant cervical, supraclavicular, or axillary adenopathy Assessment: This is a 16 yo female with persistent epigastric pain and early satiety. Plan: 1. Upon this visit, I requested a gastric emptying study to rule out delayed gastric emptyi ng. 2. I also scheduled an EGD for the patient to rule out gastritis, peptic ulcer, or other GI pathology. 3. I suggested the patient to continue PPI treatment for now. 4. Further management will depend on above study results and her clinical course. 5. I would like to follow up with the patient in 1 months. documented in this encounter Plan of Treatment + +---------+--------+ + + | Name | Type | Priori | Associated Diagnoses | Order Schedule | | | | ty | | | + +---------+--------+ + + | NM GASTRIC EMPTYING | Imaging | Routin | Abdominal Pain, | Ordered: 07/01/2007 | | STUDY | | e | Epigastric | | + +---------+--------+ + + documented as of this encounter Visit Diagnoses + + | Diagnosis | + + | Abdominal pain, epigastric - Primary | + + | Early satiety | + + documented in this encounter
--- OUTSIDE RECORDS SUMMARY | ~2019-07-14 | XMS | Encounter Summary ---
Demographics + + + | Address | [address] | | | [place] [address] | + + + | Home Phone | | + + + | Preferred Language | Unknown | + + + | Marital Status | Single | + + + | Mosque Affiliation | NON | + + + | Race | White | + + + | Ethnic Group | Not or | + + + Author + + + | Author | [facility] | + + + | Organization | [facility] | + + + | Address | Unknown | + + + | Phone | Unavailable | + + + Support + + + + + | Name | Relationship | Address | Phone | + + + + + | Anita Gerardo | ECON | [address] | | | | | [place] | | | | | [address] | | + + + + + | Anita Paredes | ECON | [address] | | | | | [place] | | | | | [address] | | + + + + + Care Team Providers + +------+ + | Care Child Psychologist Name | Role | Phone | + [...] [place] | | | | | | [facility] | | | | | | [address] [facility] | | | | | | Mailcode: CDRCP | | | | | | [place] | | | | | | [place], [place] | | | | | | [address] | | | | | | [phone] | | | +--------+ + + + [...]
--- OUTSIDE RECORDS SUMMARY | ~2019-07-14 | XMS | Encounter Summary ---
Demographics + + + | Address | [address] | | | [place] [address] | + + + | Home Phone | | + + + | Preferred Language | Unknown | + + + | Marital Status | Single | + + + | Congregational Affiliation | Unknown | + + + | Race | Unknown | + + + | Ethnic Group | Unknown | + + + Author + + + | Author | [facility] | | | and [place] | + + + | Organization | [facility] | | | and Andersonana [...] Team Providers + +------+ + | Care Radiology Aide Name | Role | Phone | + +------+ + PCP | Unavailable | + +------+ + Encounter Details +--------+ + + + + | Date | Type | Department | Care Team | Description | +--------+ + + + + | 06/02/ | [facility] | [facility] | Jaskaran Olvera | Gastroesophageal | | 2016 | Encounter | [facility] ABIMAEL Oro MD [address] | reflux disease, | | | | INTRA OP [address] | [address] | esophagitis presence | | | | [address] [place], [place] | [place] [address] | not specified; | | | | [address] | [phone] | Atypical chest pain; | | | | [phone] | | Abdominal pain, | | | | | | diffuse; Diarrhea | +--------+ + + + + Social [...] | Blood Pressure | 113/66 | 06/02/2016 10:35 AM | | | | | PST | | + + + + + | Pulse | 79 | 06/02/2016 10:35 AM | | | | | PST | | + + + + + | Temperature | 36.7 C (98.1 F) | 06/02/2016 10:35 AM | | | | | PST | | + + + + + | Respiratory Rate | 16 | 06/02/2016 10:35 AM | | | | | PST | | + + + + + | Oxygen Saturation | - | - | | + + + + + | Inhaled Oxygen | - | - | | | Concentration | | | | + + + + + | Weight | 79 kg (174 lb 2.6 | 06/02/2016 10:35 AM | | | | oz) | PST | | + + + + + | Height | 165.1 cm (5' 5") | 06/02/2016 10:35 AM | | | | | PST | | + + + + + | Body Mass Index | 28.98 | 06/02/2016 10:35 AM | | | | | PST | | + + + + + documented in this encounter Discharge Summaries Jaskaran Olvera MD - 06/02/2016 10:15 AM PST Discharge Summaries by Jaskaran Olvera MD at 06/02/16 1015 Author: Jaskaran Olvera MD Service: Gastroenterology Author Type: Physician Filed: 06/02/16 1015 Date of Service: 06/02/161014 Status: Signed Front Office Attendant: [facility] Service: [facility]ology Brief Post-op Discharge Note DISCHARGE DIAGNOSES: Active Problems: Atypical chest pain Diarrhea Resolved Problems: * No resolved hospital problems. * Procedures: Procedure(s): ESOPHAGOGASTRODUODENOSCOPY This patient was transferred to the recovery area post-operatively and has experienced no d ifficulties at the time of my assessment. The patient is anticipated to continue to meet di scharge criteria per protocol as assessed by nursing and may be discharged at that time with designated caregiver. Disposition: Home Condition: Good Follow up: With GI clinic Medication List START taking these medications fluconazole 200 MG tablet QTY: 21 tablet Refills: 0 Commonly known as: DIFLUCAN Take 1 tablet by mouth daily. CONTINUE taking these medications desogestrel-ethinyl estradiol 0.15-30 MG-MCG per tablet Refills: 0 Commonly known as: APRI dicyclomine 10 MG capsule QTY: 120 capsule Refills: 11 For diagnoses: Gastroesophageal reflux disease, esophagitis presence not specified, Atypic al chest pain, Abdominal pain, diffuse, Diarrhea Commonly known as: BENTYL Take 1 capsule by mouth 4 (four) times daily as needed. MULTIVITAMIN GUMMIES ADULT PO Refills: 0 naproxen sodium 220 MG tablet Refills: 0 Commonly known as: ANAPROX omeprazole 20 MG capsule QTY: 60 capsule Refills: 11 For diagnoses: Gastroesophageal reflux disease, esophagitis presence not specified, Atypic al chest pain Commonly known as: PRILOSEC Take 1 capsule by mouth 2 (two) times daily before meals. Where to Get Your Medications These medications were sent to [facility] - [place], [place] - [address] [place] [address] - fluconazole 200 MG tablet Jaskaran Olvera MD 06/02/2016 10:15 AM documented in th is encounter Medications at Time of Discharge + + + +---------+ + + | Medication | Sig | Dispensed | Refills | Start | End Date | | | | | | Date | | + + + +---------+ + + | | Take 1 tablet by | | 0 | 06/11/20 | | | desogestrel-ethinyl | mouth daily. | | | 15 | | | estradiol (APRI) | | | | | | | 0.15-30 MG-MCG per | | | | | | | tablet | | | | | | + + + +---------+ + + | MULTIPLE | Take by mouth. | | 0 | 05/21/20 | | | VITAMINS-MINERALS PO | | | | 16 | | + + + +---------+ + + | naproxen sodium | Take 220 mg by mouth | | 0 | 05/21/20 | | | (ANAPROX) 220 MG | 2 (two) times daily | | | 16 | | | tablet | with meals. | | | | | + + + +---------+ + + documented as of this encounter Plan of Treatment Not on filedocumented as of this encounter Procedures + +--------+ + + + | Procedure Name | Priori | Date/Time | Associated Diagnosis | Comments | | | ty | | | | + +--------+ + + + | HCG, URINE, QUAL | Routin | 06/02/2016 | | Results for this | | | e | 9:23 AM | | procedure are in the | | | | PST | | results section. | + +--------+ + + + | TISSUE REQUEST FOR | Routin | 06/02/2016 | | Results for this | | PATHOLOGY (NON-ORD) | e | 12:00 AM | | procedure are in the | | | | PST | | results section. | + +--------+ + + + documented in this encounter Results , Urine, Qual (06/02/2016 9:23 AM PST) + + + + + + | Component | Value | Ref Range | Performed | Pathologist | | | | | At | Signature | + + + + + + | Preg Test, | NEGATIVEComment: Testing | | EXTERNAL | | | Ur | performed at [facility];[address] | | LAB | | | | [facility];[place], [place] | | | | | | [address] | | | | + + + + + + + + | Specimen | + + | Urine specimen | | (specimen) | + + + +---------+ + + | Performing | Address | City/State/Zipcode | Phone Number | | Organization | | | | + +---------+ + + | EXTERNAL LAB | | | | + +---------+ + + Tissue Request For Pathology (06/02/2016 12:00 AM PST) + + | Specimen | + + | Soft tissue sample | | (specimen) | + + + + + | Narrative | Performed At | + + + | SPECIMEN(S): A DUODENAL BIOPSY SPECIMEN(S): B GASTRIC- BIOPSY | EXTERNAL LAB | | SPECIMEN SOURCE: A. DUODENAL BIOPSY B. GASTRIC- BIOPSY CLINICAL | | | HISTORY: 06/02/2016 at 1006 H. Diarrhea. Epigastric pain. | | | MICROSCOPIC DESCRIPTION: A-B. Histologic sections of all submitted | | | blocks are examined by light microscopy. These findings, together with | | | the gross examination, support the pathologic diagnosis. FINAL | | | PATHOLOGIC DIAGNOSIS: A. Duodenum, biopsies: - Unremarkable duodenal | | | mucosa. - Negative for active inflammation or villous blunting. | | | B. Stomach, biopsies: - Benign gastric mucosa with mild vascular | | | congestion. - Negative for acute inflammation. AMB:rrc:[id number] | | | GROSS DESCRIPTION: Two specimens are received in two containers | | | labeled with the patient's name: A. The specimen is received in | | | formalin designated "duodenum" and consists of 2 pink-corrales soft tissue | | | fragments that measure 0.3 and 0.4 cm in greatest dimension. The | | | specimen is entirely submitted in cassette (A1). B. The specimen | | | is received in formalin designated "gastric bx" and consists of 4 | | | pink-corrales soft tissue fragments that range in size from 0.1 cm up to | | | 0.5 cm in greatest dimension. The specimen is entirely submitted in | | | cassette (B1). fam:belen PERFORMING LABORATORY: Professional | | | interpretation and technical preparation was performed by [facility] | | [facility], [address], | | | [place] [address] (Director Diabetes: Aiden Ragsdale M.D.; IA#: | | | [id number]). Diagnostician: Rubia Murcia MD Pathologist | | | Electronically Signed 06/03/2016 | | + + + + +---------+ + + | Performing | Address | City/State/Zipcode | Phone Number | | Organization | | | | + +---------+ + + | EXTERNAL LAB | | | | + +---------+ + + documented in this encounter Visit Diagnoses + + | Diagnosis | + + | Gastroesophageal reflux disease, esophagitis presence not specified | + + | Atypical chest pain Other chest pain | + + | Abdominal pain, diffuse Abdominal pain, unspecified site | + + | Diarrhea | + + documented in this encounter
--- OUTSIDE RECORDS SUMMARY | ~2019-07-14 | XMS | Encounter Summary ---
Demographics + + + | Address | [address] | | | [place] [address] | + + + | Home Phone | | + + + | Preferred Language | Unknown | + + + | Marital Status | Single | + + + | Mandaeism Affiliation | NON | + + + | Race | White | + + + | Ethnic Group | Not or | + + + Author + + + | Author | [facility] | + + + | Organization | [facility] | + + + | Address | Unknown | + + + | Phone | Unavailable | + + + Support + + + + + | Name | Relationship | Address | Phone | + + + + + | Anita Gerardo | ECON | [address] | | | | | [place] | | | | | [address] | | + + + + + | Anita Paredes | ECON | [address] | | | | | [place] | | | | | [address] | | + + + + + Care Team Providers + +------+ + | Care Program Facilitator Name | Role | Phone | + +------+ + | Perry Ramirez MD | PCP | | + +------+ + Encounter Details +--------+ + + + + | Date | Type | Department | Care Team | Description | +--------+ + + + + | 11/30/ | Ancillary | Registration [id number] | | | | 2006 | [address] | [address] | | | | | [address] | [address] Mailcode: [address] | | | | | | [place], [place] | | | | | | [address] | | | | | | [phone] | | | +--------+ + + + [...]
--- OUTSIDE RECORDS SUMMARY | ~2019-07-14 | XMS | Clinical Summary ---
Demographics + + + | Address | [address] | | | [place] [address] | + + + | Home Phone | | + + + | Preferred Language | Unknown | + + + | Marital Status | Single | + + + | Roman Catholic Affiliation | Unknown | + + + | Race | Unknown | + + + | Ethnic Group | Unknown | + + + Author + + + | Author | [facility] [employer] [facility] [employer] (Historical as of | | | 03-05-19) | + + + | Organization | [facility] (Historical as of | | | 03-05-19) [...] Team Providers + +------+ + | Care Local Company Refrigerated Truck Driver Name | Role | Phone | + [...] | ODS HEALTH PLAN | ODS | [id number] | | | | | | HEALTH | | | | | | | PLAN | | | | | + +--------+ +------+-------+ + | MEDICAID | [employer] | [id number] | | | [address] | | | N | | | | [place] | | | [place] | | | | [address] | | | VICE PRESIDENT INDUSTRIAL RELATIONS | | | | | + +--------+ [...] | [place] | | | [phone] | [phone] | + +--------+ +--------+ + +
--- OUTSIDE RECORDS SUMMARY | ~2019-07-14 | XMS | Encounter Summary ---
Demographics + + + | Address | [address] | | | [place] [address] | + + + | Home Phone | | + + + | Preferred Language | Unknown | + + + | Marital Status | Single | + + + | Denominational Affiliation | NON | + + + | Race | White | + + + | Ethnic Group | Not or | + + + Author + + + | Author | [facility] | + + + | Organization | [facility] | + + + | Address | Unknown | + + + | Phone | Unavailable | + + + Support + + + + + | Name | Relationship | Address | Phone | + + + + + | Anita Gerardo | ECON | [address] | | | | | [place] | | | | | [address] | | + + + + + | Anita Paredes | ECON | [address] | | | | | [place] | | | | | [address] | | + + + + + Care Team Providers + +------+ + | Care Department Traffic Freight Router Name | Role | Phone | + [...] [place] | | | | | | [facility] | | | | | | [address] | | | | | | Mailcode: CDRCP | | | | | | [place] | | | | | | [place], [place] | | | | | | [address] | | | | | | [phone] | | | +--------+ + + + [...]
--- OUTSIDE RECORDS SUMMARY | ~2019-07-14 | XMS | Encounter Summary ---
Demographics + + + | Address | [address] | | | [place] [address] | + + + | Home Phone | | + + + | Preferred Language | Unknown | + + + | Marital Status | Single | + + + | Orthodox Affiliation | Unknown | + + + | Race | Unknown | + + + | Ethnic Group | Unknown | + + + Author + + + | Author | [facility] | | | and [place] | + + + | Organization | [facility] | | | and [place]ana [...] Team Providers + +------+ + | Care Electrical Assistant Name | Role | Phone | + +------+ + | Perry Ramirez | PCP | | | MD | | | + +------+ + Encounter Details +--------+ + + + + | Date | Type | Department | Care Team | Description | +--------+ + + + + | 05/21/ | Orders Only | [facility] GENERIC OP | Conversion | | | 2016 | | CONVERSION DEP [address] | Transaction, | | | | | [address] | Provider Unknown | | | | | [place] | [phone] | | | | | [address] | | | | | | [phone] | | | +--------+ + + + [...]
--- OUTSIDE RECORDS SUMMARY | ~2019-07-14 | XMS | Clinical Summary ---
Demographics + + + | Address | [address] | | | [place] [address] | + + + | Home Phone | | + + + | Preferred Language | Unknown | + + + | Marital Status | Single | + + + | Uatsdin Affiliation | NON | + + + [...] + | Anita Gerardo | ECON | [address] | | | | | [place], [place] | | | | | [address] | | + + + + + | Anita Paredes | ECON | [address] | | | | | [place], [place] | | | | | [address] | | + + + + + Care Team Providers + +------+ + | Care Communication Spec Name | Role | Phone | + +------+ + PCP | Unavailable | + +------+ + Source Comments JOHN is fully live on both [facility] and [facility] Allergies No Known Allergies Medications + + [...] | Person | Parent | | | [address] | | | al/Fam | | | [phone] | [place] | | | [place] | | | 5 (Home) | [address] | + +--------+ +-------+ + +
--- OUTSIDE RECORDS SUMMARY | ~2019-07-14 | XMS | Clinical Summary ---
Demographics + + + | Address | [address] | | | [place] [address] | + + + | Home Phone | | + + + | Preferred Language | Unknown | + + + | Marital Status | Single | + + + | Confucianism Affiliation | Unknown | + + + | Race | Unknown | + + + | Ethnic Group | Unknown | + + + Author + + + | Author | [facility] [employer] (Historical as of | | | 03-05-19) | + + + | Organization | [facility] [employer] (Historical as of | | | 03-05-19) [...] Team Providers + +------+ + | Care Senior Clinical Data Manager Name | Role | Phone | + [...] | ODS HEALTH PLAN | ODS | [id number] | | | | | | HEALTH | | | | | | | PLAN | | | | | + +--------+ +------+-------+ + | MEDICAID | [employer] | [id number] | | | [address] | | | N | | | | [place] | | | [place] | | | | [address] | | | CAREER SERVICES DIRECTOR | | | | | + +--------+ [...] | [place] | | | [phone] | [phone] | + +--------+ +--------+ + +
--- OUTSIDE RECORDS SUMMARY | ~2019-07-14 | XMS | Encounter Summary ---
Demographics + + + | Address | [address] | | | [place] [address] | + + + | Home Phone | | + + + | Preferred Language | Unknown | + + + | Marital Status | Single | + + + | Presybeterian Affiliation | NON | + + + | Race | White | + + + | Ethnic Group | Not or | + + + Author + + + | Author | [facility] | + + + | Organization | [facility] | + + + | Address | Unknown | + + + | Phone | Unavailable | + + + Support + + + + + | Name | Relationship | Address | Phone | + + + + + | Anita Gerardo | ECON | [address] | | | | | [place] | | | | | [address] | | + + + + + | Anita Paredes | ECON | [address] | | | | | [place] | | | | | [address] | | + + + + + Care Team Providers + +------+ + | Care Video Games Mechanic Name | Role | Phone | + +------+ + | Perry Ramirez MD | PCP | | + +------+ + Reason for Referral Consult to [place] (Routine) +--------+--------+ + + + + | Status | Reason | Specialty | Diagnoses / | Referred By | Referred To | | | | | Procedures | Contact | Contact | +--------+--------+ + + + + | Closed | | Pediatric | Diagnoses | Jackie, | [place], | | | | Gastroenterol | Abdominal | ANTONIA Solis | MD [address] | | | | ogy | pain, | [address] | [address] | | | | | generalized | [place] | [place], | | | | | Procedures | Em[place]at[place] | [place] [address] | | | | | CONSULT TO | [place], [place] | | | | | | [place] | [address] | | | | | | GI | | | | | | | ENDOSCOPY,BI | | | | | | | OPSY | | | +--------+--------+ + + + + Encounter Details +--------+ + + + + | Date | Type | Department | Care Team | Description | +--------+ + + + + | 07/06/ | Refinery Technician | Pediatric | Irma Mejia, | Abdominal Pain, | | 2006 | | Gastroenterology at | RN [address] | Generalized (Primary | | | | [facility] | [address] | Dx) | | | | [facility] | [place] [address] | | | | | [address] | | | | | | Mailcode: CDRCP | | | | | | [place] | | | | | | [place], [place] | | | | | | [address] | | | | | | [phone] | | | +--------+ + + + [...] filedocumented as of this encounter Visit Diagnoses + + | Diagnosis | + + | Abdominal pain, generalized - Primary | + + documented in this encounter"
--- OUTSIDE RECORDS SUMMARY | ~2019-07-14 | XMS | Encounter Summary ---
Demographics + + + | Address | [address] | | | [place] [address] | + + + | Home Phone | | + + + | Preferred Language | Unknown | + + + | Marital Status | Single | + + + | Episcopal Affiliation | Unknown | + + + | Race | Unknown | + + + | Ethnic Group | Unknown | + + + Author + + + | Author | [facility] | | | and [place] | + + + | Organization | [facility] | | | and [place] | [...] Team Providers + +------+ + | Care Health And Physical Education Teacher Name | Role | Phone | [...] | | [address] | A, TRANSPORT [address] | | | | | [place] | [address] | | | | | [address] | [place] [address] | | | | | [phone] | [phone] | | | | | | | [...]
--- OUTSIDE RECORDS SUMMARY | ~2019-07-14 | XMS | Encounter Summary ---
Demographics + + + | Address | [address] | | | [place] [address] | + + + | Home Phone | | + + + | Preferred Language | Unknown | + + + | Marital Status | Single | + + + | Evangelical Affiliation | NON | + + + | Race | White | + + + | Ethnic Group | Not or | + + + Author + + + | Author | [facility] | + + + | Organization | [facility] | + + + | Address | Unknown | + + + | Phone | Unavailable | + + + Support + + + + + | Name | Relationship | Address | Phone | + + + + + | Anita Gerardo | ECON | [address] | | | | | [place] | | | | | [address] | | + + + + + | Anita Paredes | ECON | [address] | | | | | [place] | | | | | [address] | | + + + + + Care Team Providers + +------+ + | Care Fruit I Farmworker Name | Role | Phone | + [...] Dx); Early [place] | | | | [facility] | | | | | | [address] | | | | | | Mailcode: CDRCP | | | | | | [place] | | | | | | [place], [place] | | | | | | [address] | | | | | | [phone] | | | +--------+---------+ + + + [...] HIDA scan. She is then referred to [facility] GI office for further evaluation. No past [...]
--- OUTSIDE RECORDS SUMMARY | ~2019-07-14 | XMS | Encounter Summary ---
Demographics + + + | Address | [address] | | | [place] [address] | + + + | Home Phone | | + + + | Preferred Language | Unknown | + + + | Marital Status | Single | + + + | Presybeterian Affiliation | Unknown | + + + | Race | Unknown | + + + | Ethnic Group | Unknown | + + + Author + + + | Author | [facility] | | | and [place]ana | + + + | Organization | [facility] | | | and Andersonana | [...] Team Providers + +------+ + | Care Safety Patrol Officer Name | Role | Phone | + +------+ + PCP | Unavailable | + +------+ + Encounter Details +--------+ + + + + | Date | Type | Department | Care Team | Description | +--------+ + + + + | 12/02/ | Hospital | [facility] | Jaskaran Olvera | Abdominal pain, | | 2016 | Encounter | [facility] MD Larry MOORE | diffuse; Change in | | | | [address] | [address] | bowel movement; | | | | BLVD [place], MD | [place] [address] | Rectal bleeding | | | | [address] | [phone] | | | | | [phone] | | | +--------+ + + + [...] + + + | Blood Pressure | 105/69 | 12/03/2015 1:03 PM | | | | | PDT | | + + + + + | Pulse | 96 | 12/03/2015 1:03 PM | | | | | PDT | | + + + + + | Temperature | 36.1 C (97 F) | 12/03/2015 1:03 PM | | | | | PDT | | + + + + + | Respiratory Rate | 20 | 12/03/2015 1:03 PM | | | | | PDT | | + + + + + | Oxygen Saturation | - | - | | + + + + + | Inhaled Oxygen | - | - | | | Concentration | | | | + + + + + | Weight | 79.9 kg (176 lb 2.4 | 12/03/2015 1:03 PM | | | | oz) | PDT | | + + + + + | Height | 165.1 cm (5' 5") | 12/03/2015 1:03 PM | | | | | PDT | | + + + + + | Body Mass Index | 29.31 | 12/03/2015 1:03 PM | | | | | PDT | | + + + + + documented in this encounter Discharge Summaries Jaskaran Olvera MD - 12/03/2015 12:26 PM PDT Discharge Summaries by Jaskaran Olvera MD at 12/03/151225 Author: Jaskaran Olvera MD Service: Gastroenterology Author Type: Physician Filed: 12/03/15 0463 Date of Service: 12/03/151225 Status: Signed Salon Shampoo Assistant: Jaskaran Olvera MD (Physician) [facility] Service: Gastroenterology Brief Post-op Discharge Note DISCHARGE DIAGNOSES: Active Problems: Blood in stool Change in bowel habits Resolved Problems: * No resolved hospital problems. * Procedures: Procedure(s): COLONOSCOPY This patient was transferred to the recovery area post-operatively and has experienced no d ifficulties at the time of my assessment. The patient is anticipated to continue to meet di scharge criteria per protocol as assessed by nursing and may be discharged at that time with designated caregiver. Disposition: Home Condition: Good Follow up: With GI clinic Medication List CONTINUE taking these medications desogestrel-ethinyl estradiol 0.15-30 MG-MCG per tablet Refills: 0 Commonly known as: APRI polyethylene glycol powder QTY: 550 g Refills: 10 For diagnoses: Abdominal pain, diffuse, Change in bowel movement, Anal fissure Commonly known as: GLYCOLAX Take 17 g by mouth daily. Jaskaran Olvera MD 12/03/2015 12:26 PM documented in th is encounter Medications at [...] | TISSUE REQUEST FOR | Routin | 12/04/2015 | | Results for this | | PATHOLOGY (NON-ORD) | e | 12:00 AM | | procedure are in the | | | | PDT | | results section. | + +--------+ + + + | HCG, URINE, QUAL | Routin | 12/03/2015 | | Results for this | | | e | 11:22 AM | | procedure are in the | | | | PDT | | results section. | + +--------+ + + + documented in this encounter Results Tissue Request For Pathology (12/04/2015 12:00 AM PDT) + + | Specimen | + + | Soft tissue sample | | (specimen) | + + + + + | Narrative | Performed At | + + + | SPECIMEN(S): A TERMINAL ILEUM BIOPSY SPECIMEN(S): B RANDOM Rt. | EXTERNAL LAB | | COLON SPECIMEN(S): C RANDOM Lt. COLON SPECIMEN SOURCE: A. | | | TERMINAL ILEUM BIOPSY B. RANDOM Rt. COLON C. RANDOM Lt. COLON | | | CLINICAL HISTORY: 12/03/2015 at MICROSCOPIC DESCRIPTION: A-C. | | | Histologic sections of all submitted blocks are examined by light | | | microscopy. These findings, together with the gross examination, | | | support the pathologic diagnosis. FINAL PATHOLOGIC DIAGNOSIS: A. | | | Tho-terminal ilium, biopsies: - Nonspecific changes | | | consistent with anastomotic site COMMENT: One biopsy fragment | | | represents ileal mucosa, and the other appears to represent colonic | | | mucosa. The clinical history of a right hemicolectomy is noted. | | | The lamina propria of the ileal mucosa is mildly expanded by | | | nonspecific inflammation. There are no intraepithelial neutrophils. | | | In areas where the villi are well orientated there is normal villus | | | architecture. There are no granulomas, adenomatous change or | | | malignancy. B. Right colon, random biopsies: - No | | | pathologic abnormality. C. Left colon, random biopsies: - | | | No pathologic abnormality. The sections from both the right and left | | | colon show architecturally normal colonic mucosa. There is no acute | | | or chronic inflammation. There is no evidence of microscopic | | | colitis. There are no abnormal organisms or infiltrates. There | | | are no polyps or neoplasms. GROSS DESCRIPTION: Three specimens are | | | received in three containers labeled with the patient's name: A. | | | The specimen is received in formalin designated "Terminal ileum | | | biopsy" and consists of two 0.2 to 0.3 cm fragments all in A1. B. | | | The specimen is received in formalin designated "Random right colon" | | | and consists of three 0.2 to 0.3 cm fragments all in B1. C. The | | | specimen is received in formalin designated "Random left colon" and | | | consists of four 0.3 cm fragments all in C1. ja:emb PERFORMING | | | LABORATORY: Professional interpretation and technical preparation was | | | performed by [employer], [facility], [address] | | | [place] [address] (Fan Blade Truer: Aiden | | | Lucy Ragsdale; [facility]#: [id number]). Diagnostician: Aiden Ragsdale | | | Pathologist Electronically Signed 12/05/2015 | | + + + + +---------+ + + | Performing | Address | City/State/Zipcode | Phone Number | | Organization | | | | + +---------+ + + | EXTERNAL LAB | | | | + +---------+ + + , Urine, Qual (12/03/2015 11:22 AM PDT) + + + + + + | Component | Value | Ref Range | Performed | Pathologist | | | | | At | Signature | + + + + + + | Preg Test, | NEGATIVEComment: Testing | | EXTERNAL | | | Ur | performed at [facility] | | LAB | | | | [address]azmyn Daniels;[place], [place] | | | | | | [address] | | | | + + + [...] Diagnosis | + + | Abdominal pain, diffuse Abdominal pain, unspecified site | + + | Change in bowel movement Other symptoms involving digestive system | + + | Rectal bleeding Hemorrhage of rectum and anus | + + documented in this encounter
--- OUTSIDE RECORDS SUMMARY | ~2019-07-14 | XMS | Encounter Summary ---
Demographics + + + | Address | [address] | | | [place] [address] | + + + | Home Phone | | + + + | Preferred Language | Unknown | + + + | Marital Status | Single | + + + | Restorationist Affiliation | NON | + + + | Race | White | + + + | Ethnic Group | Not or | + + + Author + + + | Author | [facility] | + + + | Organization | [facility] | + + + | Address | Unknown | + + + | Phone | Unavailable | + + + Support + + + + + | Name | Relationship | Address | Phone | + + + + + | Anita Gerardo | ECON | [address] | | | | | [place] | | | | | [address] | | + + + + + | Anita Paredes | ECON | [address] | | | | | [place] | | | | | [address] | | + + + + + Care Team Providers + +------+ + | Care Dry Food Products Mixer Name | Role | Phone | + [...] [place] | | | | | | [facility] | | | | | | [address] [facility] [address] | | | | | | Mailcode: CDR | | | | | | [place] | | | | | | [place], [place] | | | | | | [address] | | | | | | [phone] | | | +--------+ + + + [...]
--- OUTSIDE RECORDS SUMMARY | ~2019-07-14 | XMS | Encounter Summary ---
Demographics + + + | Address | [address] | | | [place] [address] | + + + | Home Phone | | + + + | Preferred Language | Unknown | + + + | Marital Status | Single | + + + | Yazdanism Affiliation | Unknown | + + + | Race | Unknown | + + + | Ethnic Group | Unknown | + + + Author + + + | Author | [facility] | | | and [place] | + + + | Organization | [facility] | | | and Andersonana [...] Team Providers + +------+ + | Care Frame Repairer Name | Role | Phone | + +------+ + PCP | Unavailable | + +------+ + Encounter Details +--------+ + + + + | Date | Type | Department | Care Team | Description | +--------+ + + + + | 10/16/ | Hospital | [facility] | | | | 1998 | Encounter | MED CTR XRAY [address] | | | | | | [address] | | | | | | [place] [address] | | | | | | [phone] | | | +--------+ + + + [...]
--- OUTSIDE RECORDS SUMMARY | ~2019-07-14 | XMS | Encounter Summary ---
Demographics + + + | Address | [address] | | | [place] [address] | + + + | Home Phone | | + + + | Preferred Language | Unknown | + + + | Marital Status | Single | + + + | Jew Affiliation | NON | + + + | Race | White | + + + | Ethnic Group | Not or | + + + Author + + + | Author | [facility] | + + + | Organization | [facility] | + + + | Address | Unknown | + + + | Phone | Unavailable | + + + Support + + + + + | Name | Relationship | Address | Phone | + + + + + | Anita Gerardo | ECON | [address] | | | | | [place] | | | | | [address] | | + + + + + | Anita Paredes | ECON | [address] | | | | | [place] | | | | | [address] | | + + + + + Care Team Providers + +------+ + | Care Vegetable Picker Name | Role | Phone | + +------+ + | Perry Ramirez MD | PCP | | + +------+ + Encounter Details +--------+ + + + + | Date | Type | Department | Care Team | Description | +--------+ + + + + | 07/16/ | Hospital | Registration [id number] | Humberto Hannah MD | | | 2007 | Activity | [address] | | | | | | [address] Mailcode: [address] | | | | | | [place], [place] | | | | | | [address] | | | | | | [phone] | | | +--------+ + + + [...] | + +--------+ + + + | SURGICAL PATHOLOGY | Routin | 07/16/2007 | | Results for this | | | e | | | procedure are in the | | | | | | results section. | + +--------+ + + + documented in this encounter Results SURGICAL PATHOLOGY (07/16/2007) + + + + + + | Component | Value | Ref Range | Performed | Pathologist | | | | | At | Signature | + + + + + + | SURGICAL | SOURCE OF SPECIMEN:A | | [facility] | | | PATHOLOGY | DuodenumSOURCE OF | | DEPARTMENT | | | | SPECIMEN:B AntrumSOURCE | | OF | | | | OF SPECIMEN:C Gastric | | PATHOLOGY | | | | bodySOURCE OF SPECIMEN:D | | | | | | Esophagus Final | | | | | | Pathologic Diagnosis:A: | | | | | | Duodenum, biopsy: | | | | | | - Small intestinal | | | | | | mucosa with no | | | | | | diagnostic abnormality | | | | | | B: Gastric antrum, | | | | | | biopsy: - Gastric | | | | | | antral-type mucosa with | | | | | | no diagnostic | | | | | | abnormality C: Gastric | | | | | | body, biopsy: - | | | | | | Gastric body-type mucosa | | | | | | with no diagnostic | | | | | | abnormality D: | | | | | | Esophagus, biopsy: | | | | | | - Squamous mucosa | | | | | | with no diagnostic | | | | | | abnormality Case | | | | | | reviewed by:Brit | | | | | | Lucy Diaz/Surgical | | | | | | Pathology | | | | | | FellowChrisjami Booker | | | | | | Lucy Zazueta, | | | | | | Ph.D./PathologistT:07/19 | | | | | | :mark I have reviewed | | | | | | all diagnostic slides | | | | | | and have edited the | | | | | | gross and/ormicroscopic | | | | | | portion of this report | | | | | | as part of my pathologic | | | | | | assessment andfinal | | | | | | diagnosis. Clinical | | | | | | History:The patient is a | | | | | | 16-year-old girl with | | | | | | abdominal pain. Gross | | | | | | Description:Four | | | | | | specimens are received | | | | | | in formalin in | | | | | | containers labeled with | | | | | | thepatient name | | | | | | (initials SA). A: | | | | | | Duodenum: Received | | | | | | are two fragments of | | | | | | corrales, soft tissue that | | | | | | measure0.3 x 0.2 x 0.2 | | | | | | cm in aggregate. The | | | | | | entire specimen is | | | | | | submitted. B: Antrum: | | | | | | Received is a single | | | | | | fragment of corrales, soft | | | | | | tissue thatmeasures 0.4 | | | | | | x 0.3 x 0.3 cm. The | | | | | | entire specimen is | | | | | | submitted. C: Gastric | | | | | | body: Received is a | | | | | | single fragment of corrales, | | | | | | soft tissue thatmeasures | | | | | | 0.4 x 0.3 x 0.3 cm. | | | | | | The entire specimen is | | | | | | submitted. D: | | | | | | Esophagus: Received | | | | | | is a single fragment of | | | | | | corrales, soft tissue | | | | | | thatmeasures 0.3 x 0.2 x | | | | | | 0.1 cm. The entire | | | | | | specimen is submitted. | | | | | | Cassette Index:A: | | | | | | Duodenum:A1B: | | | | | | Antrum:B1C: Gastric | | | | | | body:C1D: | | | | | | Esophagus:D1JLD:labRen | | | | | | dering Diagnostician: | | | | | | Pk Zazueta | | | | | | | | | | | | Lucy,Ph.D.PathologistEle | | | | | | ctronically Signed | | | | | | 07/21/2007 | | | | + + + + + + + + | Specimen | + + | | + + + + + + + | Performing | Address | City/State/Zipcode | Phone Number | | Organization | | | | + + + + + | [facility] | [address] | [place] [address] | | | PATHOLOGY | [address] | | | + + + + + | [facility] | [address] | [place] [address] | | | PATHOLOGY | [address] | | | + + + + + documented in this encounter Visit Diagnoses Not on filedocumented in this encounter"
--- OUTSIDE RECORDS SUMMARY | ~2019-07-14 | XMS | Encounter Summary ---
Demographics + + + | Address | [address] | | | [place] [address] | + + + | Home Phone | | + + + | Preferred Language | Unknown | + + + | Marital Status | Single | + + + | Jainism Affiliation | NON | + + + [...] + | Anita Gerardo | ECON | [address] | | | | | [place] | | | | | [address] | | + + + + + | Anita Paredes | ECON | [address] | | | | | [place] | | | | | [address] | | + + + + + Care Team Providers + +------+ + | Care Medical Aides Teacher Name | Role | Phone | [...] [id number] | | | | | | [place], [place] | | | | | | [address] | | | | | | [phone] | | | +--------+ + + + [...] | + + + + + | [facility] | [address] | [place] [address] | | | PATHOLOGY | [address] | | | + + + + + | [facility] | [address] | [place] [address] | | | PATHOLOGY | [address] | | | + + + + + documented in this encounter Visit Diagnoses Not on filedocumented in this encounter"
--- OUTSIDE RECORDS SUMMARY | ~2019-07-14 | XMS | Clinical Summary ---
Demographics + + + | Address | [address] | | | [place] [address] | + + + | Home Phone [...] + | Anita Gerardo | ECON | [address] | | | | | [place], [place] | | | | | [address] | | + + + + + | Anita Paredes | ECON | [address] | | | | | [place], [place] | | | | | [address] | | + + + + + Care Team Providers + +------+ + | Care Fire Fighter Airport Name | Role | Phone | + +------+ + PCP | Unavailable | + +------+ + Source Comments JOHN is fully live on both [facility] and [facility] InPatient.[facility] Allergies No Known Allergies Medications [...] | Person | Parent | | | [address] | | | al/Fam | | | [phone] | [place] | | | scott | | | 5 (Home) | [address] | + +--------+ +-------+ + +
--- OUTSIDE RECORDS SUMMARY | ~2019-07-14 | XMS | Encounter Summary ---
Demographics + + + | Address | [address] | | | [place] [address] | + + + | Home Phone | | + + + | Preferred Language | Unknown | + + + | Marital Status | Single | + + + | Orthodox Affiliation | NON | + + + | Race | White | + + + | Ethnic Group | Not or | + + + Author + + + | Author | [facility] | + + + | Organization | [facility] | + + + | Address | Unknown | + + + | Phone | Unavailable | + + + Support + + + + + | Name | Relationship | Address | Phone | + + + + + | Anita Gerardo | ECON | [address] | | | | | [place] | | | | | [address] | | + + + + + | Anita Paredes | ECON | [address] | | | | | [place] | | | | | [address] | | + + + + + Care Team Providers + +------+ + | Care Asbestos Surveyor Name | Role | Phone | + [...] [id number] | | | | | | [place], [place] | | | | | | [address] | | | | | | [phone] | | | +--------+ + + + [...]
--- OUTSIDE RECORDS SUMMARY | ~2019-07-14 | XMS | Encounter Summary ---
Demographics + + + | Address | [address] | | | [place] [address] | + + + | Home Phone | | + + + | Preferred Language | Unknown | + + + | Marital Status | Single | + + + | Christian Affiliation | Unknown | + + + | Race | Unknown | + + + | Ethnic Group | Unknown | + + + Author + + + | Author | [facility] | | | and [place] | + + + | Organization | [facility] | | | and [...] Team Providers + +------+ + | Care Crisis Nurse Name | Role | Phone | + +------+ + PCP | Unavailable | + +------+ + Encounter Details +--------+ + + + + | Date | Type | Department | Care Team | Description | +--------+ + + + + | 12/02/ | Hospital | [facility] | Jaskaran Olvera | Abdominal pain, | | 2016 | Encounter | [facility] MD Larry MOORE | diffuse; Change in | | | | [address] | [address] | bowel movement; | | | | [address] [place], [place] | [place] [address] | Rectal bleeding | | | | [address] | [phone] | | | | | [phone] | | | +--------+ + + + [...] Service: Gastroenterology Author Type: Physician Filed: 12/03/15 7746 Date of Service: 12/03/151225 Status: Signed City Surveyor: Jaskaran Olvera MD (Physician) [facility] [...] preparation was | | | performed by [employer], [facility], [address] | | | [place] [address] (Diabetes Specialist: Aiden | | | Lucy Ragsdale; [facility]#: [id number]). Diagnostician: Aiden Ragsdale | | | Pathologist [...] | | | Ur | performed at [facility] | | LAB | | | | [address] Daniels;[place], [place] | | | | | | [address] | | | | + + + [...]
--- OUTSIDE RECORDS SUMMARY | ~2019-07-14 | XMS | Clinical Summary ---
Demographics + + + | Address | [address] | | | [place] [address] | + + + | Home Phone | | + + + | Preferred Language | Unknown | + + + | Marital Status | Single | + + + | Latter-Day Affiliation | Unknown | + + + | Race | Unknown | + + + | Ethnic Group | Unknown | + + + Author + + + | Author | [facility] | | | and [place]ana | + + + | Organization | [facility] | | | and [...] Team Providers + +------+ + | Care Supervisor Bottle House Cleaners Name | Role | Phone | + +------+ + | Perry Ramirez | PCP | | | MD | | | + +------+ + Allergies + + + + + + | Active Allergy | Reactions | Severity | Noted | Comments | | | | | Date | | + + + + + + | Meperidine | Hallucination | Medium | 02/08/20 | | | | | | 15 | | + + + + + + | Hydromorphone | Hallucination | Medium | 02/08/20 | | | | | | 15 | | + + + + + + | Sulfamethoxazole-Tri | Hallucination | Medium | 02/08/20 | | | methoprim | | | 15 | | + + + + + + Medications + + + +---------+------+------+-------+ | Medication | Sig | Dispensed | Refills | Star | End | Statu | | | | | | t | Date | s | | | | | | Date | | | + + + +---------+------+------+-------+ | MULTIPLE | Take by mouth. | | 0 | 11/0 | | Activ | | VITAMINS-MINERALS PO | | | | 2/20 | | e | | | | | | 16 | | | + + + +---------+------+------+-------+ | | Take 1 tablet by | | 0 | 11/2 | | Activ | | desogestrel-ethinyl | mouth daily. | | | 10/06 | | e | | estradiol (APRI) | | | | 15 | | | | 0.15-30 MG-MCG per | | | | | | | | tablet | | | | | | | + + + +---------+------+------+-------+ | naproxen sodium | Take 220 mg by mouth | | 0 | 11 | | Activ | | (ANAPROX) 220 MG | 2 (two) times daily | | | 20 | | e | | tablet | with meals. | | | 16 | | | + + + +---------+------+------+-------+ Active Problems [...] | | + +------+ + + | Father | | | | + +------+ + + | Maternal Grandfather | | | | + +------+ + + | Maternal Grandmother | | Alive | | + +------+ + + | Mother | | Alive | | + +------+ + + | Mother | | | | + +------+ + [...] + + + | Vaccine: | | | | | Dtap/Tdap/Td (1 - | 4 | | | | Tdap) | | | | + + + + + | Vaccine: HPV (1 - | | | | | Female 2-dose | 4 | | | | series) | | [...]
--- OUTSIDE RECORDS SUMMARY | ~2019-07-14 | XMS | Encounter Summary ---
Demographics + + + | Address | [address] | | | [place] [address] | + + + | Home Phone [...] + + + | Author | [facility] | | | and [place] | + + + | Organization | [facility] | | | and Andersonana [...] Team Providers + +------+ + | Care Votator Machine Operator Name | Role | Phone | [...] | | | | [place] | [phone] | | | | | [address] | | | | | | [phone] | | | +--------+ + + + [...]
--- OUTSIDE RECORDS SUMMARY | ~2019-07-14 | XMS | Clinical Summary ---
Demographics + + + | Address | [address] | | | [place] [address] | + + + | Home Phone | | + + + | Preferred Language | Unknown | + + + | Marital Status | Single | + + + | Religion Affiliation | Unknown | + + + | Race | Unknown | + + + | Ethnic Group | Unknown | + + + Author + + + | Author | [facility] | | | and [place] | + + + | Organization | [facility] | | | and Andersonana [...] Team Providers + +------+ + | Care Cosmetics Machine Operator Name | Role | Phone [...]
--- OUTSIDE RECORDS SUMMARY | ~2019-07-14 | XMS | Encounter Summary ---
Demographics + + + | Address | [address] | | | [place] [address] | + + + | Home Phone | | + + + | Preferred Language | Unknown | + + + | Marital Status | Single | + + + | Gnosticist Affiliation | Unknown | + + + | Race | Unknown | + + + | Ethnic Group | Unknown | + + + Author + + + | Author | [facility] | | | and [place] | + + + | Organization | [facility] | | | and [place]ana [...] Team Providers + +------+ + | Care Manager Performance Improvement Name | Role | Phone | + +------+ + PCP | Unavailable | + +------+ + Encounter Details +--------+ + + + + | Date | Type | Department | Care Team | Description | +--------+ + + + + | 06/02/ | [facility] | [facility] | Jaskaran Olvera | Gastroesophageal | | 2016 | Encounter | [facility] ABIMAEL Oro MD [address] | reflux disease, | | | | INTRA OP [address] | [address] | esophagitis presence | | | | [address] [place], [place] | [place] [address] | not specified; | | | | [address] | [phone] | Atypical chest pain; | | | | [phone] | | Abdominal pain, | | | [...] 1015 Date of Service: 06/02/161014 Status: Signed Traffic Signal Mechanic: Jaskaran Olvera MD ([facility] Service: Gastroenterology Brief Post-op Discharge Note DISCHARGE [...] Your Medications These medications were sent to [facility] - [place], [place] - [address] [place] [address] - fluconazole 200 MG tablet Jaskaran Olvera [...] | | | Ur | performed at [facility];[address] | | LAB | | | | [facility];[place], [place] | | | | | | [address] | | | | + + + [...] interpretation and technical preparation was performed by [facility] | | | [facility], [address], | | | [place] [address] (Histopath Tech: Aiden Ragsdale M.D.; IA#: | | | [id number]). Diagnostician: Rubia Murcia MD Pathologist | | [...]
--- OUTSIDE RECORDS SUMMARY | ~2019-07-14 | XMS | Encounter Summary ---
Demographics + + + | Address | [address] | | | [place] [address] | + + + | Home Phone | | + + + | Preferred Language | Unknown | + + + | Marital Status | Single | + + + | Episcopal Affiliation | NON | + + + | Race | White | + + + | Ethnic Group | Not or | + + + Author + + + | Author | [facility] | + + + | Organization | [facility] | + + + | Address | Unknown | + + + | Phone | Unavailable | + + + Support + + + + + | Name | Relationship | Address | Phone | + + + + + | Anita Gerardo | ECON | [address] | | | | | [place] | | | | | [address] | | + + + + + | Anita Paredes | ECON | [address] | | | | | [place] | | | | | [address] | | + + + + + Care Team Providers + +------+ + | Care Cooperer Name | Role | Phone | + +------+ + | Opal Ramirez MD | PCP | | + +------+ + Encounter Details +--------+ + + + + | Date | Type | Department | Care Team | Description | +--------+ + + + + | 07/16/ | Procedure - | [facility] Division of | Endoscopy, Gi | EGD | | 2006 | | Gastroenterology/Hep | | (esophagogastroduode | | | Transcribed | atology [address] | | noscopy) | | | | [address] | | | | | | Mailcode: PV310 | | | | | | [facility] | | | | | | [address] | | | | | | [place], [place] | | | | | | [address] | | | | | | [phone] | | | +--------+ + + + [...] AM PST | | PROCEDURES:PANENDOSCOPY (EGD) CPT: 90322. | | WITH BIOPSY(S)/BRUSHING(S). CPT: 51672. | | PERSONNEL:THE ATTENDING PHYSICIAN WAS PRESENT DURING THE ENTIRE PROCEDURE. | | ENDOSCOPIST: ASSISTANT SUZY GRANT. | | REFERRED BY:OPAL RAMIREZ M.D. | | EVALUATION PERSONNELPRE-OPERATIVE PHYSICAL BY AURY MACHUCA, CRACKLING PRESS OPERATOR | | PROFESSOR ON JUL 16, 2007 [...]
--- OUTSIDE RECORDS SUMMARY | ~2019-07-14 | XMS | Encounter Summary ---
Demographics + + + | Address | [address] | | | [place] [address] | + + + | Home Phone | | + + + | Preferred Language | Unknown | + + + | Marital Status | Single | + + + | Buddhist Affiliation | NON | + + + | Race | White | + + + | Ethnic Group | Not or | + + + Author + + + | Author | [facility] | + + + | Organization | [facility] | + + + | Address | Unknown | + + + | Phone | Unavailable | + + + Support + + + + + | Name | Relationship | Address | Phone | + + + + + | Anita Gerardo | ECON | [address] | | | | | [place] | | | | | [address] | | + + + + + | Anita Paredes | ECON | [address] | | | | | [place] | | | | | [address] | | + + + + + Care Team Providers + +------+ + | Care Small Products Ii Assembler Name | Role | Phone | + [...] [place] | | | | | | [facility] | | | | | | [address] [facility] | | | | | | Mailcode: CDR | | | | | | [place] | | | | | | [place], [place] | | | | | | [address] | | | | | | [phone] | | | +--------+ + + + [...]
--- OUTSIDE RECORDS SUMMARY | ~2019-07-14 | XMS | Encounter Summary ---
Demographics + + + | Address | [address] | | | [place] [address] | + + + | Home Phone | | + + + | Preferred Language | Unknown | + + + | Marital Status | Single | + + + | Congregation Affiliation | NON | + + + | Race | White | + + + | Ethnic Group | Not or | + + + Author + + + | Author | [facility] | + + + | Organization | [facility] | + + + | Address | Unknown | + + + | Phone | Unavailable | + + + Support + + + + + | Name | Relationship | Address | Phone | + + + + + | Anita Gerardo | ECON | [address] | | | | | [place] | | | | | [address] | | + + + + + | Anita Paredes | ECON | [address] | | | | | [place] | | | | | [address] | | + + + + + Care Team Providers + +------+ + | Care Welding Supervisor Name | Role | Phone | + [...] | | | generalized | [place] | [place], | | | | | Procedures | [address] [place] | [place] [address] | | | | | CONSULT TO | [place], [place] | | | | | | [place] | [address] | | | | | | GI | | | | | | | ENDOSCOPY,BI | | | | | | | OPSY | | | +--------+--------+ + + + + Encounter Details +--------+ + + + + | Date | Type | Department | Care Team | Description | +--------+ + + + + | 07/06/ | [facility] | Pediatric | Irma Mejia, | Abdominal Pain, | | 2006 | | Gastroenterology at | RN [address] | Generalized (Primary | | | | [facility] | [address] | Dx) | | | | [facility] | [place] [address] | | | | | [address] | | | | | | Mailcode: CDRCP | | | | | | [place] | | | | | | [place], [place] | | | | | | [address] | | | | | | [phone] | | | +--------+ + + + [...]
--- OUTSIDE RECORDS SUMMARY | ~2019-07-14 | XMS | Encounter Summary ---
Demographics + + + | Address | [address] | | | [place] [address] | + + + | Home Phone [...] + + + | Author | [facility] | | | and [place] | + + + | Organization | [facility] | | | and [...] Team Providers + +------+ + | Care Therapeutic Recreation Specialist Name | Role | Phone | + +------+ + PCP | Unavailable | + +------+ + Encounter Details +--------+ + + + + | Date | Type | Department | Care Team | Description | +--------+ + + + + | 05/21/ | Hospital | [facility] | Conversion | | | 2016 | Encounter | [facility] | Transaction, | | | | | CLINIC [address] | Provider Unknown | | | | | [place] | | | | | | [address] | (Fax) | | | | | [phone] | | | +--------+ + + + [...] + + + | Blood Pressure | 122/74 | 05/21/2016 9:56 AM | | | | | PDT | | + + + + + | Pulse | 88 | 05/21/2016 9:56 AM | | | | | PDT | | + + + + + | Temperature | - | - | | + + + + + | Respiratory Rate | 16 | 05/21/2016 9:56 AM | | | | | PDT | | + + + + + | Oxygen Saturation | - | - | | + + + + + | Inhaled Oxygen | - | - | | | Concentration | | | | + + + + + | Weight | 79 kg (174 lb 2.6 | 05/21/2016 9:56 AM | | | | oz) | PDT | | + + + + + | Height | 165.1 cm (5' 5") | 05/21/2016 9:56 AM | | | | | PDT | | + + + + + | Body Mass Index | 28.98 | 05/21/2016 9:56 AM | | | | | PDT | | + + + + + documented in this encounter Medications at Time of Discharge + [...] Visit Diagnoses Not on filedocumented in this encounter
--- OUTSIDE RECORDS SUMMARY | ~2019-07-14 | XMS | Encounter Summary ---
Demographics + + + | Address | [address] | | | [place] [address] | + + + | Home Phone | | + + + | Preferred Language | Unknown | + + + | Marital Status | Single | + + + | Pentecostalism Affiliation | Unknown | + + + | Race | Unknown | + + + | Ethnic Group | Unknown | + + + Author + + + | Author | [facility] | | | and [place] | + + + | Organization | [facility] | | | and [place] [...] Team Providers + +------+ + | Care Technical Sales Representatives Name | Role | Phone | + +------+ + PCP | Unavailable | + +------+ + Encounter Details +--------+ + + + + | Date | Type | Department | Care Team | Description | +--------+ + + + + | 05/21/ | Hospital | [facility] | Conversion | | | 2016 | Encounter | [facility] | Transaction, | | | | | CLINIC [address] | Provider Unknown | | | | | [place] | | | | | | [address] | (Fax) | | | | | [phone] | | | +--------+ + + + [...]
--- OUTSIDE RECORDS SUMMARY | ~2019-07-14 | XMS | Encounter Summary ---
Demographics + + + | Address | [address] | | | [place] [address] | + + + | Home Phone [...] + + + + + | Anita eGrardo | ECON | [address] | | | | | [place] | | | | | [address] | | + + + + + | Anita Paredes | ECON | [address] | | | | | [place] | | | | | [address] | | + + + + + Care Team Providers + +------+ + | Care Barrel Charrer Helper Name | Role | Phone | + +------+ + | Opal Ramirez MD | PCP | | + +------+ + Encounter Details +--------+ + + + + | Date | Type | Department | Care Team | Description | +--------+ + + + + | 07/16/ | Procedure - | [facility] Division of | Endoscopy, Gi | EGD | | 2006 | | Gastroenterology/Hep | | (esophagogastroduode | | | Transcribed | atology [address] | | noscopy) | | | | [address] | | | | | | Mailcode: PV310 | | | | | | [facility] | | | | | | [address] | | | | | | [place], [place] | | | | | | [address] | | | | | | [phone] | | | +--------+ + + + [...] AM PST | | PROCEDURES:PANENDOSCOPY (EGD) CPT: 91238. | | WITH BIOPSY(S)/BRUSHING(S). CPT: 23478. | | PERSONNEL:THE ATTENDING PHYSICIAN WAS PRESENT DURING THE ENTIRE PROCEDURE. | | ENDOSCOPIST: ASSISTANT SUZY GRANT. | | REFERRED BY:OPAL RAMIREZ M.D. | | EVALUATION PERSONNELPRE-OPERATIVE PHYSICAL BY AURY MACHUCA, LINE LEAD | | PROFESSOR ON JUL 16, 2007 [...]
--- OUTSIDE RECORDS SUMMARY | ~2019-07-14 | XMS | Encounter Summary ---
Demographics + + + | Address | [address] | | | [place] [address] | + + + | Home Phone | | + + + | Preferred Language | Unknown | + + + | Marital Status | Single | + + + | Christian Affiliation | Unknown | + + + | Race | Unknown | + + + | Ethnic Group | Unknown | + + + Author + + + | Author | [facility] | | | and [place] | + + + | Organization | [facility] | | | and [place]ana [...] Team Providers + +------+ + | Care Certified Alcohol And Drug Counselor Name | Role | Phone | + [...] | | | | [place] | [phone] | | | | | [address] | | | | | | [phone] | | | +--------+ + + + [...]
[2019-07-14] MEDS ORDERED: SERTRALINE HCL50 MG PO (18:52)
--- NOTE | 2019-07-14 19:20 | EKG ---
[facility] [address] [facility] [place], [place] [address] Signed Normal sinus rhythm Rightward axis Borderline ECG No previous ECGs available Confirmed by BECKY RODRIGUES MD ([id number]) on 07/14/2019 7:19:52 PM Electronically Signed By: BECKY RODRIGUES MD 07/14/191919 PATIENT NAME: CAROLINEQUETAAmy MORROW Electrocardiogram DATE OF : 89 PHYSICIAN: BECKY RODRIGUES MD REPORT #: [id number] REPORT IS CONFIDENTIAL AND NOT TO BE RELEASED WITHOUT AUTHORIZATION
== END 2019-07-14 20:44 | disposition home or self-care (01) ==
LOC: ED 18:37
DX: R07.89 Other chest pain (principal); Z88.8 Allergy status to other drugs, medicaments and biological substances; Z88.2 Allergy status to sulfonamides; Z88.1 Allergy status to other antibiotic agents; Z88.5 Allergy status to narcotic agent; Z79.899 Other long term (current) drug therapy
CPT/HCPCS: 36415; 71045; 80053; 84484; 85025; 93005; 93010; 99285-25

== ENCOUNTER 2020-11-03 00:51 | Emergency (ER) | payer OTHER ==
[~2020-11-03] VITALS: Ht 165.1 cm; Wt 107.0 kg
[~2020-11-03 00:51] MED LIST changes: +SERTRALINE HCL50 MG PO
== END 2020-11-03 02:50 | disposition home or self-care (01) ==
LOC: ED 00:51
DX: K52.9 Noninfective gastroenteritis and colitis, unspecified (principal); Z88.8 Allergy status to other drugs, medicaments and biological substances; Z88.5 Allergy status to narcotic agent; Z88.1 Allergy status to other antibiotic agents; Z88.2 Allergy status to sulfonamides; Z79.899 Other long term (current) drug therapy
CPT/HCPCS: 96374; 96375; 99283-25; J2270; J2405; J7030

== ENCOUNTER 2021-10-17 08:24 | Emergency (ER) | payer OTHER ==
[~2021-10-17] VITALS: Ht 165.1 cm; Wt 90.4 kg
[2021-10-17] MEDS ORDERED: PRENATA CHEWAB1 EACH PO (10:05)
== END 2021-10-17 10:46 | disposition home or self-care (01) ==
LOC: ED 08:24
DX: O26.892 Other specified pregnancy related conditions, second trimester (principal); R10.30 Lower abdominal pain, unspecified; Z3A.14 14 weeks gestation of pregnancy; Z88.5 Allergy status to narcotic agent; Z88.8 Allergy status to other drugs, medicaments and biological substances; Z79.899 Other long term (current) drug therapy
CPT/HCPCS: 81001; 99284

== ENCOUNTER 2022-04-02 08:55 | Inpatient (IN) | payer OTHER ==
[~2022-04-02] VITALS: Ht 165.1 cm; Wt 108.9 kg
[~2022-04-02 08:55] MED LIST changes: +PRENATA CHEWAB1 EACH PO
--- NOTE | 2022-04-08 08:56 | NUR ---
04/08/22 0856 Arleen Blanco 0836 PT ARRIVED IN PACU SLEEPY WITH NO C/O'S. DAD HOLDING BABY. 0840 C/O R SIDE ABD PAIN WITH FUNDAL MASSAGE. ANESTHESIA TALKING WITH PT ABOUT TAP BLOCKS. 0850 PT BREAST FEEDING BABY. DAD AT BEDSIDE.
--- NOTE | 2022-04-09 13:49 | PR ---
[facility] [address] [place] [address] Signed PP Progress Notes Datetime Report Generated by CPN: 04/09/2022 13:48 SUBJECTIVE: [id number] Pain: Within Normal Limits Nausea/Vomiting: Denies Vital Signs: [id number] Vital Signs: Reviewed; Within Normal Limits Notable Details: PP Hgb/Hct = Abdomen/Uterus: Normal Lochia: Normal Extremities: Normal Incision: Normal IMPRESSION/PLAN/PROCEDURES: [id number] Impression: Normal Progression Plan: Continue Present Management Progress Notes: Doing well, without compalint, tolerating food well, voiding without difficulty. Encouraged to increase activity as tolerated Signing Physician: Brian Mehta MD Copies: ~ *Electronically Signed* 04/09/22 1348 BRIAN MEHTA MD PATIENT NAME: QUETA VELAZQUEZ PROGRESS NOTE DATE OF : 89 PHYSICIAN: BRIAN MEHTA MD RPT #: [id number] REPORT IS CONFIDENTIAL AND NOT TO BE RELEASED WITHOUT AUTHORIZATION
--- NOTE | 2022-04-09 15:46 | OR ---
[facility] [address] [place], [place] [address] Signed DATE OF OPERATION: 04/08/2022 SURGEON: Francisco rFanks MD Patient of Dr. Franks PREOPERATIVE DIAGNOSIS: Term , previous section. POSTOPERATIVE DIAGNOSIS: Term , previous section. PROCEDURE: Repeat low transverse segment section, delivery of live female . CLINICAL ASST: Dr. Tripp. ANESTHESIA: Spinal. ESTIMATED BLOOD LOSS: 500 mL. COMPLICATIONS: None. DRAINS: None. FINDINGS: Live female , Apgars 9 and 9. Weight 8 pounds 1 ounce. Normal uterus, normal tubes and ovaries bilateral. DESCRIPTION OF PROCEDURE: The patient was brought to the operating room, placed in supine position. After adequate spinal anesthesia was obtained, she was prepped and draped in usual sterile fashion. Andrea catheter was placed in the bladder. A Pfannenstiel skin incision was made through the previous surgical scar using a scalpel. Subcutaneous tissue was dissected with the scalpel and Bovie. The fascia was nicked with scalpel and extended Electronically Signed By: FRANCISCO FRANKS MD 04/09/22 1546 PATIENT NAME: QUETA VELAZQUEZ OPERATIVE REPORT DATE OF : 89 REPORT #: [id number] PHYSICIAN: FRANCISCO FRANKS MD PCP: IVY MURPHY PA-C REPORT IS CONFIDENTIAL AND NOT TO BE RELEASED WITHOUT AUTHORIZATION [facility] [address] [place], [place] [address] Signed in transverse fashion using curved scissors. The underlying abdominal musculature was bluntly and sharply from the fascia above and below the incision. The abdominal musculature was along the midline using finger dissection and curved scissors. The peritoneum was grasped with hemostats, elevated, nicked with curved scissors and extended in vertical fashion using curved scissors. The David self-retaining retractor was inserted into the incision and tightened in place. The lower uterine segment was identified. The lower uterine segment was carefully nicked with scalpel and extended in transverse fashion using finger dissection. Bulging bag clear fluid came from the incision, which was opened with pickups with teeth. The was noted to be in the vertex NISH presentation. The infant head was easily delivered from the incision. The rest of the infant was easily delivered from the incision. The cord was doubly clamped and cut. The infant passed off table in good condition to awaiting nurse. The placenta was manually removed. Uterine cavity explored with a lap pad to remove any retained membranes. An angle stitch of 0 Monocryl was placed at one end of the incision and a running locking stitch of 0-Monocryl starting at the other end used to close the incision. A 2nd running stitch of 0 Monocryl was used to imbricate the 1st layer. Good hemostasis was noted. The entire pelvis was irrigated, suctioned, and examined, and any superficial bleeding spots cauterized with the Bovie. The David self-retaining retractor was removed from the incision. The anterior wall of the peritoneum closed using running stitch of 2-0 Vicryl suture. The abdominal musculature was reapproximated using interrupted stitches of 0 Vicryl suture. The abdominal wall was irrigated, suctioned, and examined, and any bleeding spots were cauterized with the Bovie. The fascia was then closed using two running stitch of 0 Vicryl suture meeting in the midline. Subcutaneous tissue was irrigated, suctioned, and examined, and any bleeding spots were cauterized with the Bovie. The subcutaneous tissue was then closed using interrupted stitches of 3-0 Vicryl suture and the skin reapproximated using skin clips. The patient tolerated the procedure well, went to recovery room in good condition. The sponge, needle, and instrument count correct were correct at the end of the procedure. Francisco Franks MD MJB/MODL /[id number] Electronically Signed By: FRANCISCO FRANKS MD 04/09/22 1546 PATIENT NAME: QUETA VELAZQUEZ OPERATIVE REPORT DATE OF : [birth year] REPORT #: [id number] PHYSICIAN: FRANCISCO FRANKS MD PCP: IVY MURPHY PA-C REPORT IS CONFIDENTIAL AND NOT TO BE RELEASED WITHOUT AUTHORIZATION [facility] [address] [place], [place] [address] Signed Copies: ~ Electronically Signed By: FRANCISCO FRANKS MD 04/09/22 1546 PATIENT NAME: CAROLINEQUETA CRISTHIAN OPERATIVE REPORT DATE OF : 89 REPORT #: [id number] PHYSICIAN: FRANCISCO FRANKS MD PCP: IVY MURPHY PA-C REPORT IS CONFIDENTIAL AND NOT TO BE RELEASED WITHOUT AUTHORIZATION
--- NOTE | 2022-04-10 10:00 | PR ---
[facility] [address] [facility] [place], [place] [address] Signed PP Progress Notes Datetime Report Generated by CPN: 04/10/2022 10:00 SUBJECTIVE: [id number] Pain: Within Normal Limits Nausea/Vomiting: Denies Vital Signs: [id number] Vital Signs: Reviewed; Within Normal Limits Notable Details: Ab Screen Positive Abdomen/Uterus: Normal Lochia: Normal Extremities: Normal Incision: Normal IMPRESSION/PLAN/PROCEDURES: [id number] Impression: Normal Progression Other Impression: Chronic Anemia Plan: Discharge Procedures: None Other Procedures: Ab ID pending Progress Notes: Patient doing well, without complaint, ready to go home. On antidepressant prior to , stopped when found out , so would like to restart now. Signing Physician: Brian Mehta MD Copies: ~ *Electronically Signed* 04/10/22 1000 BRIAN MEHTA MD PATIENT NAME: QUETA VELAZQUEZ PROGRESS NOTE DATE OF : [birth year] PHYSICIAN: BRIAN MEHTA MD RPT #: [id number] REPORT IS CONFIDENTIAL AND NOT TO BE RELEASED WITHOUT AUTHORIZATION
== END 2022-04-10 13:05 | disposition home or self-care (01) | DRG 788 ==
LOC: FBC 04-08 04:56
PROVIDERS: ADMIT General Practice; ATTEND General Practice
PROC: 10D00Z1 Extraction of Products of Conception, Low, Open Approach (ICD-10-PCS; principal; 2022-04-08 07:30)
DX: O34.211 Maternal care for low transverse scar from previous cesarean delivery (principal); Z3A.39 39 weeks gestation of pregnancy; O99.02 Anemia complicating childbirth; Z37.0 Single live birth; D63.8 Anemia in other chronic diseases classified elsewhere
CPT/HCPCS: 01961; 36415; 83030; 85027; 86850; 86870; 86900; 86901; A9270; J0131; J0690; J1100; J2001; J2274; J2370; J2405; J2590; J2790; J2795; J7121

== ENCOUNTER 2024-06-23 14:02 | Inpatient (IN) | payer OTHER ==
[~2024-06-23] VITALS: Ht 165.1 cm; Wt 113.4 kg
[~2024-06-23 14:02] MED LIST changes: +CYCLOBENZAPRINE10 MG PO; +ENSKYCE1 EACH PO; +ONDANSETRON ODT8 MG PO
[2024-06-23] MEDS ORDERED: CEFAZOLIN SODIUM 2 GM/20 ML SYR IV SCH (18:26)
[2024-06-23 18:29] LABS: HEMATOCRIT 32.8 % (35.0-50.0); HEMOGLOBIN 10.6 g/dL (12.0-18.0); MCH 23.5 (27-36); MCHC 32.2 g/dl (30-36); MCV 72.8 fl (81-99); RBC 4.51 M/ul (4.3-5.7); RDW 16.3 (10.5-15.0)
[2024-06-23] MEDS ORDERED: BUPIVACAINE 0.75% IN DEXTROSE 2 ML AMP ONE (18:30)
[2024-06-23] MEDS ORDERED: fentaNYL citrate 100 MCG/2 ML VIAL ONE (18:30)
[2024-06-23] MEDS ORDERED: OXYTOCIN 10 UNITS/ML VIAL ONE (18:30)
[2024-06-23] MEDS ORDERED: SOD+POT BICARB/CITRIC ACID 2 EA TABLET.EFF PO ONE (18:30)
[2024-06-23] MEDS ORDERED: MORPHINE SULFATE 1 MG/ML VIAL ONE (18:30)
[2024-06-23] MEDS ORDERED: LACTATED RINGER'S 1,000 ML IV PRN (18:30)
[2024-06-23] MEDS ORDERED: ondansetron HCL 4 MG/2 ML VIAL ONE (18:30)
[2024-06-23] MEDS ORDERED: LIDOCAINE HCL 2% 5 ML SDV ONE (18:36)
[2024-06-23 18:54] VITALS: BP 134/85
[2024-06-23] MEDS ORDERED: PHENYLEPHRINE HCL 10 MG/ML VIAL ONE (18:58)
[2024-06-23] MEDS ORDERED: dexmedeTOMIDine HCl 200 MCG/2 ML VIAL ONE (19:11)
[2024-06-23] MEDS ORDERED: Ropivacaine HCl 0.5% 30 ML VIAL ONE (19:11)
[2024-06-23] MEDS ORDERED: DEXAMETHASONE SOD PHOS 4 MG/ML VIAL ONE (19:11)
[2024-06-23] MEDS ORDERED: SODIUM CHLORIDE 0.9% 20 ML IV ONE (19:11)
[2024-06-23] MEDS ORDERED: fentaNYL citrate 50 MCG/ML SDV IV PRN (19:30)
[2024-06-23] MEDS ORDERED: KETOROLAC TROMETHAMINE 30 MG/ML VIAL IV PRN ×2 (19:30)
[2024-06-23] MEDS ORDERED: NALOXONE HCL 0.4 MG SYR IV PRN ×2 (19:30)
[2024-06-23] MEDS ORDERED: ondansetron HCL 4 MG/2 ML VIAL IV PRN ×3 (19:30→20:00)
[2024-06-23] MEDS ORDERED: IBLOOD GLUCOSE TEST STRIP 1 EA TEST VI PRN (19:30)
[2024-06-23] MEDS ORDERED: diphenhydrAMINE HCL 50 MG/ML VIAL IV PRN (19:30)
[2024-06-23] MEDS ORDERED: HYDROCODONE/ACETA 5/325 TAB PO PRN (20:00)
[2024-06-23] MEDS ORDERED: PROCHLORPERAZINE EDISYLATE 10 MG/2 ML VIAL IV PRN (20:00)
[2024-06-23] MEDS ORDERED: bisacodyL 10 MG SUPP PR PRN (20:00)
[2024-06-23] MEDS ORDERED: PROMETHAZINE HCL 25 MG TAB PO PRN (20:00)
[2024-06-23] MEDS ORDERED: METOCLOPRAMIDE HCL 10 MG/2 ML SDV IV PRN (20:00)
[2024-06-23] MEDS ORDERED: OXYCODONE/APAP 5/325 TAB PO PRN (20:00)
[2024-06-23] MEDS ORDERED: OXYTOCIN/0.9 % SODIUM CHLORIDE 500 ML IV SCH (20:00)
[2024-06-23 20:12] LABS: AMPHETAMINES, URINE NEGATIVE (NEGATIVE); BARBITURATES, URINE NEGATIVE (NEGATIVE); BENZODIAZEPINE, URINE NEGATIVE (NEGATIVE); BUPRENORPHINE, URINE NEGATIVE (NEGATIVE); CANNABINOID, URINE NEGATIVE (NEGATIVE); COCAINE, URINE NEGATIVE (NEGATIVE); ECSTASY, URINE NEGATIVE (NEGATIVE); FENTANYL, URINE NEGATIVE (NEGATIVE); METHADONE, URINE NEGATIVE (NEGATIVE); OPIATES, URINE NEGATIVE (NEGATIVE); OXYCODONE, URINE NEGATIVE (NEGATIVE); PHENCYCLIDINE, URINE NEGATIVE (NEGATIVE)
--- NOTE | 2024-06-23 20:29 | NUR ---
06/23/242028 CARLOS NGUYEN 2002 PT ARRIVED TO PACU IN ROOM 106 IN [facility]. ALL MONITORS ATTACHED. PT HAS NATURAL AIRWAY IN PLACE, PT BREATHING EQUAL AND UNLABORED. PT AWAKE BUT DROWSEY. REPORT TAKEN FROM LITHOGRAPHIC PHOTOGRAPHER. PT REPORTS NO PAIN OR NAUSEA AT THIS TIME.
[2024-06-23 20:30] VITALS: BP 135/78
[2024-06-23] MEDS ORDERED: SIMETHICONE 125 MG TABLET CHEWABLE PO SCH (21:00)
[2024-06-23] MEDS ORDERED: SENNOSIDES/DOCUSATE 1 EA TAB PO SCH (21:00)
[2024-06-24] MEDS ORDERED: KETOROLAC TROMETHAMINE 30 MG/ML VIAL IV SCH (03:00)
[2024-06-24] MEDS ORDERED: LACTATED RINGER'S 1,000 ML IV SCH (05:00)
[2024-06-24 06:31] LABS: HEMATOCRIT 29.5 % (35.0-50.0); HEMOGLOBIN 9.5 g/dL (12.0-18.0); MCH 23.6 (27-36); MCHC 32.1 g/dl (30-36); MCV 73.4 fl (81-99); RBC 4.02 M/ul (4.3-5.7); RDW 16.1 (10.5-15.0)
[2024-06-24] MEDS ORDERED: SERTRALINE HCL 50 MG TAB PO SCH (09:07)
[2024-06-24] MEDS ORDERED: IBUPROFEN 600 MG TAB PO SCH (21:00)
[2024-06-25] MEDS ORDERED: FERROUS SULFATE 325 MG TAB PO SCH (11:30)
[2024-06-25 13:20] LABS: ABO O; RH NEGATIVE
[2024-06-25 13:22] LABS: FETAL HEMOGLOBIN SCREEN NEGATIVE; RHIG STATUS CANDIDATE; RHIG VIAL 1 RG24K02-C
[2024-06-25 13:24] LABS: RHIG DOSE 1 VIAL
[2024-06-25 13:26] LABS: ANTIBODY SCREEN POSITIVE
[2024-06-26 05:24] LABS: BASOPHILS 0.4 % (0-2); EOSINOPHILS 1.5 % (0-6); HEMATOCRIT 26.5 % (35.0-50.0); HEMOGLOBIN 8.6 g/dL (12.0-18.0); LYMPHOCYTES 20.4 % (24-44); MCH 23.6 (27-36); MCHC 32.6 g/dl (30-36); MCV 72.6 fl (81-99); NEUTROPHILS 70.7 % (39-80); PLATELET COUNT 252 K/uL (140-440); RBC 3.65 M/ul (4.3-5.7); RDW 16.3 (10.5-15.0)
== END 2024-06-26 13:25 | disposition home or self-care (01) | DRG 787 ==
LOC: FBCO 14:02 → FBC 18:00
PROVIDERS: Advanced Practice Midwife; ADMIT Obstetrics & Gynecology; ATTEND Obstetrics & Gynecology
PROC: 3E0234Z Introduction of Serum, Toxoid and Vaccine into Muscle, Percutaneous Approach (ICD-10-PCS; 2024-06-23)
PROC: 10D00Z1 Extraction of Products of Conception, Low, Open Approach (ICD-10-PCS; principal; 2024-06-23 19:04)
DX: O34.211 Maternal care for low transverse scar from previous cesarean delivery (principal); D62 Acute posthemorrhagic anemia; Z37.0 Single live birth; O26.893 Other specified pregnancy related conditions, third trimester; Z67.41 Type O blood, Rh negative; O90.81 Anemia of the puerperium; O77.0 Labor and delivery complicated by meconium in amniotic fluid; Z3A.37 37 weeks gestation of pregnancy; O99.213 Obesity complicating pregnancy, third trimester
CPT/HCPCS: 01961; 36415; 76818; 80307; 82803; 83030; 85025; 85027; 85060; 86850; 86900; 86901; A9270; J0690; J1100; J1200; J1885; J2003; J2274; J2371; J2405; J2590; J2790; J2795; J3010

== ENCOUNTER 2024-08-05 13:31 | Inpatient (IN) | payer OTHER ==
[~2024-08-05] VITALS: Ht 152.4 cm; Wt 102.3 kg
[2024-08-05] MEDS ORDERED: ondansetron HCL 4 MG/2 ML VIAL ONE (13:42)
[2024-08-05 13:57] LABS: BASOPHILS 0.6 % (0-2); EOSINOPHILS 1.6 % (0-6); HEMATOCRIT 35.4 % (35.0-50.0); HEMOGLOBIN 12.4 g/dL (12.0-18.0); MCV 74.4 fl (81-99); MONOCYTES 7.3 % (0-12); NEUTROPHILS 57.5 % (39-80); PLATELET COUNT 237 K/uL (140-440); RBC 4.76 M/ul (4.3-5.7); RDW 19.9 (10.5-15.0)
[2024-08-05] MEDS ORDERED: HYDROmorphone HCL 1 MG/ML SYR IV PRN (14:15)
[2024-08-05] MEDS ORDERED: SERTRALINE HCL100 MG PO (14:18)
[2024-08-05] MEDS ORDERED: SPRINTEC1 EACH PO (14:18)
[2024-08-05 14:19] LABS: ALBUMIN 3.3 g/dL (3.4-5.0); ALBUMIN/GLOBULIN RATIO 0.92 (1.1-2.4); ANION GAP 11.7 (7-21); BILIRUBIN, TOTAL 0.2 ng/dL (0.2-1.0); BUN/CREATININE RATIO 14.47 (6.0-28.6); CALCIUM 8.8 mg/dL (8.5-10.1); CREATININE, SERUM 0.76 mg/dL (0.55-1.02); POTASSIUM 3.7 mmol/L (3.5-5.1); PROTEIN, TOTAL 6.9 g/dL (6.4-8.2)
[2024-08-05] MEDS ORDERED: fentaNYL citrate 100 MCG/2 ML VIAL IV ONE (14:30)
[2024-08-05] MEDS ORDERED: LORazepam 2 MG/ML VIAL IV ONE (14:30)
[2024-08-05] MEDS ORDERED: ondansetron HCL 4 MG/2 ML VIAL IV ONE (14:30)
[2024-08-05] MEDS ORDERED: fentaNYL citrate 100 MCG/2 ML VIAL IV PRN (16:00)
[2024-08-05] MEDS ORDERED: ASPIRIN 325 MG TAB PO ONE (17:00)
[2024-08-05] MEDS ORDERED: CLOPIDOGREL BISULFATE 75 MG TAB PO ONE (17:00)
[2024-08-05] MEDS ORDERED: SODIUM CHLORIDE 0.9% 500 ML IV PRN (18:45)
[2024-08-05] MEDS ORDERED: DEXAMETHASONE SOD PHOS 10 MG/ML VIAL IV ONE (18:45)
[2024-08-05] MEDS ORDERED: diphenhydrAMINE HCL 50 MG/ML VIAL IV ONE (18:45)
[2024-08-05] MEDS ORDERED: FAMOTIDINE 20 MG/ 2 ML VIAL IV ONE (18:45)
[2024-08-05] MEDS ORDERED: LORazepam 2 MG/ML VIAL IV PRN ×2 (19:45→21:30)
--- NOTE | 2024-08-05 20:56 | NUR ---
pt ARRIVED TO MS FLOOR, TRANSFERED FROM ED STRETCHER TO MS BED VIA TRANSFER SHEET, 3PA. pt DROWSY, AWAKENS AND ANSWERS QUESTIONS. VSS, PUREWICK IN PLACE. MOTHER AT BEDSIDE AND ASSISTS IN ANSWERING QUESTIONS. pt ADMITTED FOR CVA, DISCUSSED WITH FABRICATION SPECIALIST. ORDER PLACED UNDER PROTOCOL FOR TELE, TELE PLACED. PRIMARY RN IN ROOM AND RECEIVING BEDSIDE REPORT. ADMISSION COMPLETED WITH HELP FROM MOTHER. CALL LIGHT IN REACH, POC DISCUSSED AND pt VERBALIZED UNDERSTANDING.
[2024-08-05 20:59] VITALS: BP 127/75
--- NOTE | 2024-08-05 21:19 | NUR ---
RECEIVED REPORT FROM ANTONIA NO. PT ADMITTED TO ROOM 110 VIA GURNEY W/ ALL BELONGINGS. FAMILY AT BEDSIDE. CALL LIGHT WITHIN REACH.
[2024-08-05] MEDS ORDERED: ondansetron HCL 4 MG/2 ML VIAL IV PRN (21:30)
[2024-08-05] MEDS ORDERED: DEXTROSE 5% - LACTATED RINGERS 1,000 ML IV SCH (21:30)
[2024-08-05 21:39] LABS: CHOLESTEROL/HDL RATIO 4.9
--- NOTE | 2024-08-05 22:00 | NUR ---
PT RESTING IN BED, DROWSY BUT AROUSABLE. VSS. REPORTS ONGOING PAIN TO RIGHT NECK, /. D5LR STARTED TO RIGHT HAND PER EMAR. VERY SLIGHT RIGHT FACIAL DROOP. SPEECH NORMAL. RIGHT SIDED WINNIE, RUE 3/5, RLE 1/5. PT NOTES RUE NEGLECT. REPORTS NUMBNESS TO RUE AND N/T TO RLE. UNABLE TO TEST PRON/DRIFT TO RIGHT SIDE AND UNABLE TO TEST ATAXIA TO RLE R/T WEAKNESS. RUE ATAXIA. LSC. HRR. BTA. LBM 08/05. PT HAS PUREWICK IN PLACE, UO CLEAR YELLOW. SL TO LAC WNL. PT'S MOM ATTENTIVE AT BEDSIDE.
--- NOTE | 2024-08-05 23:00 | NUR ---
PTS MOM REPORTS INCREASED RESTLESSNESS. PT REPORTS FEELING ANXIOUS, IS TEARFUL REGARDING INABILITY TO FEEL OR MOVE BODY. PT REPOSITIONED FOR COMFORT. TV ON FOR DISTRACTION.
[2024-08-05 23:34] VITALS: BP 127/75
--- NOTE | 2024-08-05 23:58 | NUR ---
PT AND MOM TEARFUL. PT IS RESTLESS AND ANXIOUS. REPORTS PAIN TO RIGHT NECK 2/10 FEELS LIKE THE PAIN THAT BROUGHT HER TO ER. NEURO CHECK DONE, NO CHANGES FROM PREVIOUS ASSESS. PT SIPPED WATER, NO SWALLOWING DIFF NOTED. REPOSITIONED FOR COMFORT, UNABLE TO TOLERATE HOB ELEVATED. PRN ATIVAN ADMINISTERED PER EMAR FOR ANXIETY AND RESTLESSNESS.
[2024-08-06] VITALS (12 sets, daily range): BP systolic 110–135; BP diastolic 60–94
--- NOTE | 2024-08-06 00:56 | NUR ---
DR. CAMACHO NOTIFIED OF PTS CONTINUED ANXIETY AND RESTLESSNESS. NEW DOSE OF ATIVAN RECEIVED, OK TO START NOW.
[2024-08-06] MEDS ORDERED: LORazepam 2 MG/ML VIAL IV PRN ×2 (01:00→03:15)
--- NOTE | 2024-08-06 01:20 | NUR ---
ADMINISTERED PRN IV ATIVAN, PT STILL RESTLESS AND TEARFUL. THERAPEUTIC COMMUNICATION AND DEEP BREATHING EXERCISES USED. MOM REMAINS ATTENTIVE AT BEDSIDE.
--- NOTE | 2024-08-06 02:30 | NUR ---
PT STILL FLAILING IN BED, TEARFUL AND ANXIOUS. ATTEMPTS TO CONSOLE OR REDIRECT UNSUCCESSFUL. DR. CAMACHO NOTIFIED, REQUESTED TO COME SEE PT AND ADDITIONAL ORDERS. DECLINED AT THIS TIME, INSTRUCTED RN TO CONTINUE TO MONITOR AND CALL IF ANY OTHER CHANGES.
--- NOTE | 2024-08-06 02:44 | NUR ---
THIS RN CALLED DR CAMACHO REGARDING pt's CONTINUED ANXIETY/RESTLESSNESS IN BED AND INABILITY TO CONSOLE. VS RECENTLY DONE BY PRIMARY RN AND UTE RN-112/81(87), HR 110 (UP TO 122 BRIEFLY PER CCU RN PETE), 98% ON RA, TEMP 98. NO NEW NEURO DEFIICITS NOTED PER PRIMARY RN, pt REPORTS SHE FEELS LIKE "I'M ON FIRE", pt VERY RESTLESS IN BED AND UNABLE TO SELF SOOTH, NO IMPROVEMENT SINCE PRN ATIVAN WAS LAST GIVEN. pt ALSO PUNCHES LEFT ARM IN AIR AND VERBALIZES FRUSTRATION IN UNABLE TO SLEEP. pt ALSO RECENTLY HAD 300MLS EMESIS. VERBAL ORDER READ BACK TO CHANGE CURRENT 1MG IV ATIVAN FROM Q4H PRN TO Q2H PRN, ONE TIME DOSE PRN FOR SEROQUEL 50MG PO, AND 25 MCG IV FENTANYL Q1H PRN. WHILE ON PHONE WITH MD, PRIMARY RN UPDATES THIS RN THAT pt IS JUST NOW FALLING ASLEEP. PER MD, IF pt IS SLEEPING DURING 0600 VS, OKAY TO HOLD 0600 VS. PRIMARY RN UPDATED AND AWARE.
[2024-08-06] MEDS ORDERED: fentaNYL citrate 100 MCG/2 ML VIAL IV PRN ×2 (03:15→10:45)
[2024-08-06] MEDS ORDERED: QUETIAPINE FUMARATE 25 MG TAB PO PRN (03:15)
--- NOTE | 2024-08-06 04:04 | NUR ---
PT SLEEPING, APPEARS COMFORTABLE. MOM AT BEDSIDE.
--- NOTE | 2024-08-06 06:30 | NUR ---
PT AWAKE, DROWSY BUT APPROPRIATE. REPORTS BILAT ARM PAIN, MEDICATED W/ PRN IV FENTANYL. VSS. RIGHT SIDED WEAKNESS IMPROVED, RUE 3/5, RLE 2/5. PLANTAR MS MOD, DORSIFLEX WEAK. RIGHT EQUAL OPPORTUNITY COUNSELOR WEAK. N/T TO RIGHT SIDE CONTINUES. INC URINE, NEW PUREWICK INITIATED. IVF INFUSING. MOM AT BEDSIDE, ATTENTIVE.
[2024-08-06 06:57] LABS: BASOPHILS 0.4 % (0-2); EOSINOPHILS 0.1 % (0-6); HEMATOCRIT 37.3 % (35.0-50.0); HEMOGLOBIN 12.5 g/dL (12.0-18.0); LYMPHOCYTES 6.6 % (24-44); MCH 25.3 (27-36); MCHC 33.5 g/dl (30-36); MCV 75.5 fl (81-99); MONOCYTES 2.7 % (0-12); NEUTROPHILS 90.2 % (39-80); PLATELET COUNT 265 K/uL (140-440); RBC 4.94 M/ul (4.3-5.7)
[2024-08-06 07:12] LABS: ALBUMIN 3.4 g/dL (3.4-5.0); ALBUMIN/GLOBULIN RATIO 0.87 (1.1-2.4); ANION GAP 13.8 (7-21); BILIRUBIN, TOTAL 0.4 ng/dL (0.2-1.0); BUN/CREATININE RATIO 9.85 (6.0-28.6); CALCIUM 9.4 mg/dL (8.5-10.1); CREATININE, SERUM 0.71 mg/dL (0.55-1.02); POTASSIUM 3.8 mmol/L (3.5-5.1); PROTEIN, TOTAL 7.3 g/dL (6.4-8.2)
--- NOTE | 2024-08-06 07:57 | NUR ---
Patient resting in bed, eyes closed, respirations even/non labored. Mom at bedside sleeping. Patient has no distress at this time. Bed alarm intact. Close to RN station.
[2024-08-06] MEDS ORDERED: ACETAMINOPHEN 325 MG TAB PO PRN (08:00)
[2024-08-06] MEDS ORDERED: ondansetron HCL 4 MG/2 ML VIAL IV PRN (08:00)
[2024-08-06] MEDS ORDERED: ASPIRIN 81 MG CHEW PO SCH (08:11)
--- NOTE | 2024-08-06 08:22 | NUR ---
Patient is sleeping, mother is at bed side. No request at this time. Call light has been placed within reach
[2024-08-06] MEDS ORDERED: CLOPIDOGREL BISULFATE 75 MG TAB PO SCH (09:00)
--- NOTE | 2024-08-06 09:30 | NUR ---
PT MOTHER JASWINDER PRESENT IN ROOM, CAME OUT INTO HALLWAY WANTING TO TALK TO PHYSICIAN. AT THE TIME, MD WAS ARRIVING TO ROOM. LONG CONVERSATION HELD OUTSIDE OF THE ROOM. MD VERBALIZED HIS PLAN, MOTHER VERBALIZED HER WISHES. NO NEW ORDERS FROM NURSING STANDPOINT AT THIS TIME.
[2024-08-06] MEDS ORDERED: IBUPROFEN800 MG PO (09:33)
[2024-08-06] MEDS ORDERED: IRON325 M1 PO (09:33)
--- NOTE | 2024-08-06 10:12 | NUR ---
AIRCRAFT STRUCTURAL FITTER CAME OUT REQUESTING ASSISTANCE WITH BUBBLE STUDY, PROVIDED ASSISTANCE. PT TOLERATED WELL, IV PATENT, NO PAIN. PT LEFT WITH AIRCRAFT STRUCTURAL FITTER FOR REMAINING STUDY TO BE COMPLETED.
[2024-08-06] MEDS ORDERED: fentaNYL citrate 100 MCG/2 ML VIAL IV ONE (10:45)
[2024-08-06] MEDS ORDERED: GABAPENTIN 100 MG CAP PO SCH (10:45)
--- NOTE | 2024-08-06 11:27 | NUR ---
Assisted physical therapy with patient. Patient assisted to edge of bed then to standing position. Patient was able to stand-heavy 2PA using walker/gait belt. Pt reported her head tolerated standing for less than a min, she reported a headache and nausea while standing. Pt sat back down, she then became naueated and vomited. Zofran 4mg IV admin at this time. Oral care and repositioning done at this time. Patient's family remain at bedside assisting with cares. Patient denies needs, she reports she is tired, rest premoted at this time.
[2024-08-06] MEDS ORDERED: PHARMACY RENAL DOSE ADJUSTMENT 1 DOSE MISC PO SCH (12:00)
--- NOTE | 2024-08-06 12:20 | NUR ---
Patient resting in bed, eyes closed, respirations even and non labored. Patient's at bedside. No needs at this time. Call light within reach.
--- NOTE | 2024-08-06 13:19 | NUR ---
Admin fentanyl 50mg iv at this time for reports of 6/10 generalized pain.
--- NOTE | 2024-08-06 14:21 | NUR ---
PATIENT C/O PAIN TO BILATERAL ARMS. PRN ADMINSTERED. FAMILY REMAINS AT BEDSIDE.
--- NOTE | 2024-08-06 15:55 | NUR ---
Patient reporting 7/10 generalized pain. Admin fentanyl 50mcg IV and tylenol 650mg po at this time. Patient's family at bedside.
--- NOTE | 2024-08-06 17:16 | NUR ---
Patient reporting chest pain during a bed bath. Admin ativan 1mg IV at this time for anxiety. Charge nurse Poly updated Dr. Hunter at this time. New orders to be placed for stat EKG and chest x-ray. Dr. Hunter to come see pt per his report. Patient reporting chest discomfort earlier this shift, she reports she did not report this to staff as it improved. Patient is awake, alert and oriented x3. Vital signs are stable, sp02 98% on room air, bp 135/77, m 88, p 77, 18 RR. Family at bedside.
--- NOTE | 2024-08-06 17:24 | NUR ---
MD CALLED, PT C/O CHEST PAIN, ORDERS INPUT FOR STAT CXR, TROP, AND EKG. CHEST PAIN PER PATIENT IS PRESSURE, HAS BEEN ONGOING FOR ABOUT 3 MINUTES PRIOR TO CALLING. VS STABEL, TELEMETRY SHOWS SR 60-70'S. MONITOR IN CCU DOES NOT SHOW ANY SIGNIFICANT EVENTS SINCE CHEST PAIN ONSET. MD WILL ARRIVE TO BEDSIDE, TESTS BEING PERFORMED AT THIS TIME.
--- NOTE | 2024-08-06 17:30 | NUR ---
Dr. Hunter to bedside. Per Dr. Hunter EKG and Chest x-ray look unremarkable. Patient reports chest discomfort is going away. Warm blanket provided to patient. Family at bedside. Encouraged patient and family to call if they have needs.
--- NOTE | 2024-08-06 17:37 | NUR ---
EKG FOR CHEST PAIN REPEAT FROM EARLIER .
[2024-08-06] MEDS ORDERED: OXYCODONE HCL 5 MG TAB PO PRN (17:45)
--- NOTE | 2024-08-06 19:25 | NUR ---
Pt's mother reports patient has an allergy to codeine. Updated Dr. Hunter regarding oxycodone order. TORB from Dr. Hunter to discontinue oxycodone order d/t allergy to codeine.
--- NOTE | 2024-08-06 19:27 | NUR ---
RECEIVED REPORT FROM ANTONIA RUIZ. PT ASLEEP, APPEARS COMFORTABLE. MOM REMAINS AT BEDSIDE.
[2024-08-06] MEDS ORDERED: MELATONIN 3 MG TAB PO PRN (21:00)
--- NOTE | 2024-08-06 21:24 | NUR ---
PT SLEEPING SOUNDLY, SLEPT THROUGH VS AND TELE BATTERY REPLACEMENT. APPEARS COMFORTABLE. MOM ASLEEP IN ROOM. LSC. HRR, TELE IN PLACE. BT HYPO. LAC AND RH SL WNL. PPP X 4, ALL EXTREM PINK AND WARM. PUREWICK IN PLACE.
--- NOTE | 2024-08-06 22:15 | NUR ---
PT AWAKENED FOR HS MEDS, NEURO CHECK. PT IS DROWSY BUT COOPERATIVE. ORIENTED X 4. REPORTS ONGOING NUMBNESS TO RIGHT ARM AND LEG. RUE 2/5, UNABLE TO TEST PRON/DRIFT AND FINGER TO NOSE. RLE 2/5. PLANTAR FLEXION WEAK, DORSIFLEX UNABLE. RIGHT MANAGER DATABASE WEAK. PPP, EXTREMITIES PINK AND WARM. TOOK MEDS W/ JUICE, NO SWALLOWING DIFF NOTED. CALL LIGHT WITHIN REACH. REPORTS NECK PAIN 2/10, DENIED NEED FOR PAIN MED.
[2024-08-07] VITALS (10 sets, daily range): BP systolic 107–127; BP diastolic 61–86
--- NOTE | 2024-08-07 00:43 | NUR ---
PT SLEEPING SOUNDLY ON LEFT SIDE. APPEARS COMFORTABLE. MOM ASLEEP IN ROOM.
--- NOTE | 2024-08-07 01:18 | NUR ---
PT AWAKENED FOR Q 4 HRS NEURO CHECK. AWAKENED EASILY TO VOICE-STILL DROWSY. FOLLOWS COMMANDS. RIGHT SIDED WEAKNESS-RUE 3/5, RLE 2/5. RIGHT SIDED NUMBNESS UNCHANGED. PPP. RUE/RLE WARM AND PINK. LEFT PUPIL > RIGHT PUPIL-DENIES ANY VISION CHANGES. CALL LIGHT WITHIN REACH.
--- NOTE | 2024-08-07 02:51 | NUR ---
PT SLEEPING SOUNDLY. APPEARS COMFORTABLE.
[2024-08-07 05:14] LABS: EOSINOPHILS 1.3 % (0-6); HEMATOCRIT 36.4 % (35.0-50.0); HEMOGLOBIN 12.3 g/dL (12.0-18.0); LYMPHOCYTES 32.1 % (24-44); MCH 25.4 (27-36); MCHC 33.7 g/dl (30-36); MCV 75.4 fl (81-99); MONOCYTES 4.4 % (0-12); NEUTROPHILS 61.2 % (39-80); PLATELET COUNT 231 K/uL (140-440); RBC 4.83 M/ul (4.3-5.7); RDW 20.2 (10.5-15.0)
[2024-08-07 05:23] LABS: ANION GAP 11.4 (7-21); BUN/CREATININE RATIO 18.05 (6.0-28.6); CALCIUM 8.9 mg/dL (8.5-10.1); CREATININE, SERUM 0.72 mg/dL (0.55-1.02); MAGNESIUM 1.8 mg/dL (1.8-2.4); POTASSIUM 3.4 mmol/L (3.5-5.1)
[2024-08-07 05:28] LABS: CHOLESTEROL/HDL RATIO 5.2
--- NOTE | 2024-08-07 05:40 | NUR ---
PT AWAKE FOR LAB AND AM VS. REPORTS 3/10 RIGHT NECK AND HEAD PAIN-DECLINED PAIN MED AT THIS TIME. RIGHT SIDED WEAKNESS IMPROVED, RUE 3/5, RLE 2/5. WEAK TEACHER EARLY CHILDHOOD DEVELOPMENT RIGHT. WEAK RIGHT PLANTAR FLEXION, FLICKER OF MOVEMENT FOR RIGHT DORSIFLEX. PUREWICK CHANGED OUT, CARROL CARE DONE. FRESH ICE WATER PROVIDED. MOM REMAINS AT BEDSIDE.
--- NOTE | 2024-08-07 07:30 | NUR ---
PT RESTING SOUNDLY AT TIME OF SHIFT REPORT. MOM IS PRESENT IN THE ROOM VOCAL ABOUT CONCERNS AND PT NEEDS, GREAT ADVOCATE. PT LEFT UNDISTURBED AT THIS TIME PULSE OX IN PLACE CALL LIGHT IN REACH NO IMMEDIATE NEEDS.
--- NOTE | 2024-08-07 08:08 | NUR ---
Board has been updated and call light has beenplaced within reach
[2024-08-07] MEDS ORDERED: POTASSIUM CHLORIDE 10 MEQ TABCR PO ONE (09:00)
--- NOTE | 2024-08-07 09:02 | NUR ---
PT EATS ALL OF MORNING MEAL MOTHER CONTINUES AT BEDSIDE ENCOURAGEING AND CAREING FOR PT. PT RATES NECK PAIN 3/10 WARM PACK APPLIED. PT ENCOURAGED TO NOTIFY STAFF OF NEED FOR MEDS. SCD'S IN PLACE WELL PURWICK. MET WITH P/T FOR PLAN MOM AND PT VERBALIZE UNDERSTANDING. MOM REMARKS PT IS GREATLY IMPROVED FROM YESTERDAY DURING NEURO CHECK. REPORTS OH RLE MOVING MUCH BETTER
--- NOTE | 2024-08-07 10:01 | NUR ---
DR CAMACHO IN TO SEE PT MOTHER IS PRESENT. PAIN MEDS AND WHAT PT WILL TOLERATED DISCUSSED AT LENGTH. PLANS TO CHANGE TO PO PAIN MED FOR NECK PAIN AND START BOWEL REGIMEN. ALL QUESTIONS ANSWERED
[2024-08-07] MEDS ORDERED: OXYCODONE HCL 5 MG TAB PO PRN (10:15)
[2024-08-07] MEDS ORDERED: fentaNYL citrate 100 MCG/2 ML VIAL IV PRN (10:15)
[2024-08-07] MEDS ORDERED: POLYETHYLENE GLYCOL 3350 1 PACKET PO ONE (10:15)
--- NOTE | 2024-08-07 10:24 | NUR ---
P/T IN TO WORK WITH PT SHE BECOMES NAUSEATED GETTING TO EDGE OF BED. ZOFRAN ADMINISTERED COOL CLOTH TO FACE PT RESTING NOW NO EMESIS. WILL TRY P/T AGAIN LATER
--- NOTE | 2024-08-07 10:38 | NUR ---
PT RESTING NOW APPEARS COMFORTABLE AND STILL. NO EMESIS. FAMILY REMAIN IN THE ROOM
--- NOTE | 2024-08-07 11:37 | NUR ---
NAUSEA HAS ABATED BUT NECK AND ARM CONTINUE TO HURT. PT RATES PAIN 4/10 AT THIS TIME 3 BEING ACCEPTABLE. AGREES SHE WANTS PRN FOR PAIN. OXY ADMINISTERED PER ORDERS.
--- NOTE | 2024-08-07 12:17 | NUR ---
P/T IN TO WORK WITH PT. SHE IS ABLE TO SIT ON EDGE OF THE BED THEN USING SIT TO STAND LIFT STANDS SEVERAL TIMES. NO NAUSEA. PT PUTTING FORTH GOOD EFFORT. PAIN IN NECK AND SHOULDER IS AT 2 FROM PREVIOUS 5 WITH USE OF OXY 5 MG. MOM AND OTHER FAMILY MEMBERS PRESENT IN THE ROOM
--- NOTE | 2024-08-07 12:43 | NUR ---
PT COMPLETES 50% OF NOON MEAL (SELF FEEDS) FAMILY REMAIN PRESENT IN THE ROOM. UNDERGARMENT CHANGED AND NEW PURWIK PLACED
--- NOTE | 2024-08-07 13:22 | NUR ---
NOTIFIED BY WILDFIRE PREVENTION SPECIALIST CHRISTINA THAT PT HAD REQUESTED LAND SURVEY TECHNICIAN VISIT. PT SUPPORTED BY MOTHER AND GRANDMOTHER WHO LEFT ROOM FOR LAND SURVEY TECHNICIAN VISIT. PT EXPRESSED SITUATIONALLY APPROPRIATE EMOTIONS, TEARFUL. LAND SURVEY TECHNICIAN PROVIDED SUPPORTIVE PRESENCE, ANTICIPATORY GUIDANCE, REASSURANCE OF VALUE, EXPLORED HOPE, PROVIDED PRAYER. PT EXPRESSED GRATITUDE, EXHIBITED REDUCED SADNESS. WILL RETURN CIRCUMSTANCES WARRANT.
--- NOTE | 2024-08-07 13:35 | NUR ---
CLERGY IN TO SEE PT THEN PARTNER SOON AFTER. PT IS TEARFUL AND EMOTIONAL FOR A SHORT TIME. CONTINUES TO BE PAINFUL IN ARM AND NECK TYLENOL ADMINISTERED, TOO SOON FOR OXY.
[2024-08-07] MEDS ORDERED: GABAPENTIN 100 MG CAP PO SCH (15:00)
--- NOTE | 2024-08-07 15:25 | NUR ---
Assisted RN and Pt's family with showering Pt. Transferred from bed to bathroom 3 PA via [id number] stayed in transfer equipment during shower. Changed gown, non-slip socks, and bedding. No other needs expressed by Pt. Bed lowered. Call light left in reach. Multiple family members in the room.
--- NOTE | 2024-08-07 15:55 | NUR ---
PT TO THE SHOWER WITH MOM AND 2 PA USING TIFFANI IVERSON. PT ABLE TO STAND FOR TRANSFER TOLERATES SHOWER WELL BUT IS VERY TIRED BY THE END. FRIEND IS PRESENT TO CUT HER HAIR SHORTER PER HER REQUEST. LINENS CHANGED FRESH PURWIK PLACED AND PT BACK IN BED.
--- NOTE | 2024-08-07 17:28 | NUR ---
PT FAMILY AND CHILDREN ARE PRESENT, EVENING MEAL SERVED. PT DENIES NEED OF ANYTHING AT THIS TIME.
--- NOTE | 2024-08-07 19:05 | NUR ---
REPORT RECEIVED FROM ANTONIA ROSENBERG. pt RESTING IN BED AWAKE, DROWSY. MOTHER IN ROOM. DENIES NEEDS.
[2024-08-07] MEDS ORDERED: SENNOSIDES 1 TAB PO SCH (21:00)
--- NOTE | 2024-08-07 21:15 | NUR ---
PT'S MOTHER TO NURSES STATION. NOTES pt HAVING INVOLUNTARY MOVEMENTS IN RIGHT ARM WHEN RN ENTERS ROOM pt WITH FULL BODY INVOLUNTARY MOVEMENT. pt COMPLAINS OF "BURNING" PAIN FROM NECK DOWN BODY. pt ALSO COMPLAINS OF RIGHT KNEE PAIN IF SOMETHING HEAVY IS PUSHING ON KNEE. VSS. ASSESSMENT COMPLETE. pt ALERT AND ORIENTED TO ALL. pt CONTINUES WITH INVOLUNTARY MOVEMENT OF RIGHT ARM, HITTING SELF AND SIDE RAIL. SEIZURE PAD PLACED ON BED. ABLE TO LIFT ARM ON COMMAND AND SQUEEZE HANDS BILERALLY, ORACLE PROGRAMMER STRENGTH WEAK IN RIGHT ARM. MINIMAL VOLUNTARY MOVEMENT IN RIGHT LEG, WEAK. TINGLING NOTED IN RIGHT ARM AND RIGHT LEG, UNCHANGED PER pt FROM DAYSHIFT. FAMILY CONCERNED WITH CHANGE IN pt. PHONED. NEW ORDER RECEIVED AND REPEATED BACK TO VERIFY. EMAR UPDATED. FAMILY UPDATED MRI FOR AM.
--- NOTE | 2024-08-07 21:55 | NUR ---
2144 PHONE CALL TO MD DUE TO CONTINUED INVOLUNTARY MOVEMENTS, pt AND FAMILY CONCERNS. MD STATES TO CALL CODE STROKE, GET IMAGING, WILL BE IN TO SEE pt. 2144 CODE STROKE CALLED TELE ROBOT BROUGHT DOWN BY LOG HANDLER ANTONIA. DAIANA 108. IV SITES FLUSHED WNL. VSS. pt TO CT WITH ANTONIA FORREST, , AND .
--- NOTE | 2024-08-07 22:30 | NUR ---
pt BACK IN ROOM AFTER CT, MD DISCUSSING PLAN OF CARE WITH FAMILY. TELESTROKE NEUROLOGIST DR. DUNBAR ON PHONE DISCUSSING SYMPTOMS OF PAIN AND MOVEMENT COMMON POST CVA. FAMILY REQUESTS TRANSFER TO FACILITY WITH NEUROLOGY AND MRI. MD AGREEABLE TO TRANSFER IF THERE IS AN ACCEPTING FACILITY, PRODUCT APPLICATIONS ENGINEER RN AND MD MAKING PHONE CALLS TO OUTSIDE FACILITIES.
--- NOTE | 2024-08-07 22:40 | NUR ---
RN IN ROOM. PRN ATIVAN ADMINISTERED AT THIS TIME PER MD ORDER. PRN AND SCHEDULED MEDICATIONS ADMINISTERED AT THIS TIME WITH DRINKS OF WATER. pt TOLERATES WELL. RATES PAIN 6/10 IN NECK AND RIGHT KNEE. FAMILY REMAINS IN ROOM.
[2024-08-07] MEDS ORDERED: AMITRIPTYLINE HCL 25 MG TAB PO SCH (22:45)
--- NOTE | 2024-08-07 23:09 | NUR ---
SPOT CHECK SPO2 97% ON RA, HR 78. EYES CLOSED, BREATHING EQUAL AND UNLABORED. FAMILY IN ROOM. NO DISTRESS NOTED. NO INVOLUNTARY MOVEMENT AT THIS TIME.
[2024-08-08 00:06] VITALS: BP 119/86
--- NOTE | 2024-08-08 00:15 | NUR ---
PUREWICK CHANGED AT THIS TIME. ATTENDS WET, CARROL CARE COMPLETE, NEW ATTENDS AND PUREWICK PLACED. pt ASSISTED TO REPOSITION HIGHER IN BED, PILLOW UNDER RIGHT HIP AND LEGS. HEEL PROTECTOR ON RIGHT LEG. SCDS ON. CALL LIGHT IN REACH. CITY PLANT SUPERVISOR NOW IN ROOM.
[2024-08-08 00:33] LABS: BASOPHILS 0.4 % (0-2); EOSINOPHILS 0.9 % (0-6); HEMATOCRIT 35.7 % (35.0-50.0); HEMOGLOBIN 12.2 g/dL (12.0-18.0); LYMPHOCYTES 20.9 % (24-44); MCH 25.8 (27-36); MCHC 34.1 g/dl (30-36); MCV 75.6 fl (81-99); MONOCYTES 4.7 % (0-12); NEUTROPHILS 73.1 % (39-80); PLATELET COUNT 257 K/uL (140-440); RBC 4.72 M/ul (4.3-5.7); RDW 20.6 (10.5-15.0)
[2024-08-08 00:49] LABS: ALBUMIN 3.2 g/dL (3.4-5.0); ALBUMIN/GLOBULIN RATIO 0.97 (1.1-2.4); ANION GAP 12.6 (7-21); BILIRUBIN, TOTAL 0.3 ng/dL (0.2-1.0); BUN/CREATININE RATIO 12.34 (6.0-28.6); CALCIUM 9.1 mg/dL (8.5-10.1); CREATININE, SERUM 0.81 mg/dL (0.55-1.02); MAGNESIUM 1.7 mg/dL (1.8-2.4); POTASSIUM 3.6 mmol/L (3.5-5.1); PROTEIN, TOTAL 6.5 g/dL (6.4-8.2)
[2024-08-08] MEDS ORDERED: AMITRIPTYLINE H25 MG PO (01:28)
[2024-08-08] MEDS ORDERED: CLOPIDOGREL75 MG PO (01:28)
[2024-08-08] MEDS ORDERED: GABAPENTIN300 MG PO (01:28)
[2024-08-08] MEDS ORDERED: ASPIRIN81 MG PO (01:28)
[2024-08-08 01:30] VITALS: BP 124/67
--- NOTE | 2024-08-08 02:00 | NUR ---
NOTIFIED pt ACCEPTED TO [facility]. RN IN ROOM WITH VETERINARY SURGEON TO NOTIFY pt AND FAMILY. MD ON FLOOR COMPLETING TRANSFER ORDERS. NIH COMPLETE, 5. VSS. PUREWICK REMOVED. ATTENDS IN PLACE. NO NEEDS AT THIS TIME.
--- NOTE | 2024-08-08 02:14 | NUR ---
pt OFF FLOOR WITH [facility] CHET AND DAMARIS. BEDSIDE REPORT PROVIDED TO [facility]. SECURITY ESCORTS TO [facility] FOR TRANSPORT.
--- NOTE | 2024-08-08 02:25 | NUR ---
TELEPHONE REPORT GIVEN TO ANTONIA RODRIGUEZ AT [facility].
[2024-08-08] MEDS ORDERED: GABAPENTIN 300 MG CAP PO SCH (09:00)
--- NOTE | 2024-08-08 14:45 | EKG ---
[facility] [address] [place], [place] [address] Signed Normal sinus rhythm Normal ECG When compared with ECG of 14-JUL-2019 18:41, No significant change was found Confirmed by Sha Hunter MD ([id number]) on 08/08/2024 2:45:20 PM Electronically Signed By: SHA HUNTER MD 08/08/24 1445 PATIENT NAME: QUETA VELAZQUEZ CRISTHIAN Electrocardiogram DATE OF : 89 PHYSICIAN: SHA HUNTER MD REPORT #: [id number] REPORT IS CONFIDENTIAL AND NOT TO BE RELEASED WITHOUT AUTHORIZATION
--- NOTE | 2024-08-08 14:59 | EKG ---
[facility] [address] [facility] [place], [place] [address] Signed Normal sinus rhythm Normal ECG When compared with ECG of 06-AUG-2024 12:10, (Unconfirmed) No significant change was found Confirmed by Kelsy Hunter MD ([id number]) on 08/08/2024 2:59:19 PM Electronically Signed By: KELSY HUNTRE MD 08/08/24 1459 PATIENT NAME: QUETA VELAZQUEZ Electrocardiogram DATE OF : [birth year] PHYSICIAN: KELSY HUNTER MD REPORT #: [id number] REPORT IS CONFIDENTIAL AND NOT TO BE RELEASED WITHOUT AUTHORIZATION
== END 2024-08-08 02:15 | disposition short-term general hospital (02) | DRG 776 ==
LOC: ED 13:31 → MS 20:35
PROVIDERS: Emergency Medicine; ADMIT Student in an Organized Health Care Education/Training Program; ATTEND Student in an Organized Health Care Education/Training Program
DX: O99.43 Diseases of the circulatory system complicating the puerperium (principal); I63.89 Other cerebral infarction; G81.91 Hemiplegia, unspecified affecting right dominant side; R56.9 Unspecified convulsions; I72.8 Aneurysm of other specified arteries; O99.63 Diseases of the digestive system complicating the puerperium; K59.00 Constipation, unspecified; F39 Unspecified mood [affective] disorder; R29.706 NIHSS score 6; O99.345 Other mental disorders complicating the puerperium; Z90.49 Acquired absence of other specified parts of digestive tract; Z79.899 Other long term (current) drug therapy; Z79.891 Long term (current) use of opiate analgesic; Z88.5 Allergy status to narcotic agent; Z88.2 Allergy status to sulfonamides; Z98.890 Other specified postprocedural states
CPT/HCPCS: 36415; 36592; 70450; 70496; 70498; 70551; 70553; 71045; 72156; 80048; 80053; 80061; 83036; 83735; 84484; 85025; 85379; 85610; 93005; 93010; 93306; 97163; 97530; 99285-25; A9270; A9579; J1100; J1200; J2060; J2405; J3010; J7040; J7121; Q3014; Q9967

== ENCOUNTER 2024-10-09 12:50 | Emergency (ER) | payer OTHER ==
[~2024-10-09] VITALS: Ht 152.4 cm; Wt 99.7 kg
[~2024-10-09 12:50] MED LIST changes: +AMITRIPTYLINE H25 MG PO; +ASPIRIN81 MG PO; +CLOPIDOGREL75 MG PO; +GABAPENTIN300 MG PO; +IBUPROFEN800 MG PO; +IRON325 M1 PO; +SERTRALINE HCL100 MG PO; +SPRINTEC1 EACH PO
[2024-10-09 13:23] LABS: BASOPHILS 0.2 % (0-2); EOSINOPHILS 0.7 % (0-6); HEMATOCRIT 38.8 % (35.0-50.0); HEMOGLOBIN 13.4 g/dL (12.0-18.0); LYMPHOCYTES 8.6 % (24-44); MCH 28.2 (27-36); MCHC 34.6 g/dl (30-36); MCV 81.6 fl (81-99); MONOCYTES 4.5 % (0-12); PLATELET COUNT 210 K/uL (140-440); RBC 4.75 M/ul (4.3-5.7); RDW 14.8 (10.5-15.0)
[2024-10-09] MEDS ORDERED: ondansetron HCL 4 MG/2 ML VIAL IV ONE (13:30)
[2024-10-09] MEDS ORDERED: SODIUM CHLORIDE 0.9% 1,000 ML IV ONE ×2 (13:30→14:45)
[2024-10-09] MEDS ORDERED: DIPHENOXYLATE/ATROPINE 1 EA TAB PO ONE (13:30)
[2024-10-09 13:32] LABS: ALBUMIN 3.8 g/dL (3.4-5.0); ALBUMIN/GLOBULIN RATIO 1.23 (1.1-2.4); ANION GAP 13.7 (7-21); BILIRUBIN, TOTAL 0.8 mg/dL (0.2-1.0); BUN/CREATININE RATIO 15.62 (6.0-28.6); CALCIUM 8.7 mg/dL (8.5-10.1); CREATININE, SERUM 0.64 mg/dL (0.55-1.02); POTASSIUM 3.7 mmol/L (3.5-5.1); PROTEIN, TOTAL 6.9 g/dL (6.4-8.2)
[2024-10-09] MEDS ORDERED: ACETAMINOPHEN 500 MG TAB PO ONE (14:45)
[2024-10-09] MEDS ORDERED: ONDANSETRON ODT8 MG PO (16:01)
[2024-10-09] MEDS ORDERED: LOMOTIL TABLET1 EACH PO (16:01)
[2024-10-09 16:15] VITALS: BP 119/71
== END 2024-10-09 16:18 | disposition home or self-care (01) ==
LOC: ED 12:50
PROVIDERS: Emergency Medicine
DX: K52.9 Noninfective gastroenteritis and colitis, unspecified (principal); Z79.02 Long term (current) use of antithrombotics/antiplatelets; Z79.899 Other long term (current) drug therapy; Z88.5 Allergy status to narcotic agent; Z88.1 Allergy status to other antibiotic agents; Z88.8 Allergy status to other drugs, medicaments and biological substances
CPT/HCPCS: 36415; 80053; 84703; 85025; 96361; 96374; 99284-25; A9270; J2405; J7030

== ENCOUNTER 2025-06-21 20:01 | Emergency (ER) | payer OTHER ==
[~2025-06-21] VITALS: Ht 152.4 cm; Wt 92.5 kg
--- OUTSIDE RECORDS SUMMARY | ~2025-06-21 | XMS | Continuity of Care Document ---
Demographics + + + | Address | [address] | | | [place] [address] | + + + | Preferred Language | Unknown | + + + | Marital Status | Never | + + + | Scientology Affiliation | Unknown | + + + | Race | White | + + + | Ethnic Group | Not or | + + + Author + + + | Author | [facility] | + + + | Organization | [facility] | + + + | Address | [address] | | | [place] [address] | + + + | Phone | | + + + Care Team Providers + + + + | Care Steel Die Engraver Name | Role | Phone | + + + + Unavailable | Unavailable | + + + + Allergies No information. Encounters No information. Functional Status No information. Immunizations No information. Medications + + + + | date | description | facility | + + + + | (no date) | DESOGESTREL-ETHINYL | [facility] | | | ESTRADIOL | [facility] | + + + + | (no date) | IBUPROFEN | [facility] | | | | [facility] | + + + + | (no date) | FERROUS SULFATE | [facility] | | | | [facility] | + + + + | (no date) | SERTRALINE HCL | [facility] | | | | [facility] | + + + + | (no date) | SERTRALINE HCL | [facility] | | | | [facility] | + + + + | (no date) | NORGESTIMATE-ETHINYL | [facility] | | | ESTRADIOL | [facility] | + + + + Problems No information. Procedures No information. Results/Labs No information. Social History +--------+ + + | date | description | facility | +--------+ + + Vital Signs No information."
[~2025-06-21 20:01] MED LIST changes: +LOMOTIL TABLET1 EACH PO
[2025-06-21] MEDS ORDERED: IBLOOD GLUCOSE TEST STRIP 1 EA TEST XX ONE (20:15)
[2025-06-21 20:19] LABS: BASOPHILS 0.3 % (0.1-1.2); EOSINOPHILS 1.3 % (0.7-5.8); LYMPHOCYTES 28.8 % (19.3-51.7); MCH 25.9 PG (25.6-32.2); MCHC 32.8 g/dL (32.2-35.5); MCV 78.8 fL (79.4-94.8); MONOCYTES 5.3 % (4.7-12.5); NEUTROPHILS 64.0 % (34.0-71.1); RBC 4.68 M/uL (3.93-5.22)
[2025-06-21] MEDS ORDERED: LYRICA75 MG (20:32)
[2025-06-21 20:45] LABS: INR 0.99 (0.80-1.30); PROTIME 12.7 Sec (11.2-14.2)
[2025-06-21 20:52] LABS: ALT (SGPT) 22 U/L (14-59); AST (SGOT) 11 U/L (15-37); GLOMERULAR FILTRATION RATE,EST 123 mL/min (>60); PROTEIN, TOTAL 7.4 g/dL (6.4-8.2); UREA NITROGEN 10 mg/dL (7-18)
[2025-06-21] MEDS ORDERED: ACETAMINOPHEN 500 MG TAB PO ONE (21:00)
[2025-06-21 21:17] LABS: CORONAVIRUS COVID-19 AG NEGATIVE (NEGATIVE)
[2025-06-21 22:06] LABS: AMPHETAMINES, URINE NEGATIVE (NEGATIVE); BARBITURATES, URINE NEGATIVE (NEGATIVE); BENZODIAZEPINE, URINE NEGATIVE (NEGATIVE); CANNABINOID, URINE NEGATIVE (NEGATIVE); COCAINE, URINE NEGATIVE (NEGATIVE); ECSTASY, URINE NEGATIVE (NEGATIVE); FENTANYL, URINE NEGATIVE (NEGATIVE); METHADONE, URINE NEGATIVE (NEGATIVE); OPIATES, URINE NEGATIVE (NEGATIVE); OXYCODONE, URINE NEGATIVE (NEGATIVE); PHENCYCLIDINE, URINE NEGATIVE (NEGATIVE)
[2025-06-21] MEDS ORDERED: LACTATED RINGER'S 1,000 ML IV ONE (22:45)
[2025-06-21] MEDS ORDERED: MAGNESIUM SULFATE 2 GM/50 ML BAG IV ONE (22:45)
[2025-06-22 00:10] VITALS: BP 107/66
--- NOTE | 2025-06-23 22:08 | EKG ---
[facility] [address] [place] [address] Signed Unusual P axis, possible ectopic atrial rhythm Abnormal ECG When compared with ECG of 06-AUG-2024 17:18, Ectopic atrial rhythm has replaced Sinus rhythm Confirmed by William Basurto MD () on 06/23/2025 10:08:20 PM Electronically Signed By: WILLIAM BASURTO MD 06/23/25 2208 PATIENT NAME: QUETA VELAZQUEZ CRISTHIAN Electrocardiogram DATE OF : [birth year] PHYSICIAN: WILLIAM BASURTO MD REPORT #: [id number] REPORT IS CONFIDENTIAL AND NOT TO BE RELEASED WITHOUT AUTHORIZATION
== END 2025-06-22 00:10 | disposition short-term general hospital (02) ==
LOC: ED 20:01
PROVIDERS: Internal Medicine
DX: R51.9 Headache, unspecified (principal); Z88.2 Allergy status to sulfonamides; Z88.8 Allergy status to other drugs, medicaments and biological substances; Z79.899 Other long term (current) drug therapy; Z79.82 Long term (current) use of aspirin
CPT/HCPCS: 36415; 70450; 70496; 70498; 71045; 80053; 80307; 83735; 84484; 84703; 85025; 85610; 85730; 93005; 93010; 96365; 99285-25; A9270; J3475; J7121; Q9967